=== PATIENT | male | born 1990 | race Caucasian/White ===

== ENCOUNTER 2018-02-22 18:09 | Emergency (ER) | payer OTHER | END 2018-02-22 18:26 | disposition left against medical advice (07) | LOC: ER 18:09 | DX: Z02.9 Encounter for administrative examinations, unspecified (principal) ==

== ENCOUNTER 2018-09-27 16:50 | Inpatient (IN) | payer SELFPAY ==
[2018-09-27 17:50] LABS: Absolute Neutrophil 15.6 K/uL (1.8-8.0); Basophils % 0.2 % (0-1.3); Hematocrit 43.2 % (39.6-49.0); Lymphocytes % 5.6 % (15.3-44.8); MCH 32.9 pg (27.0-35.0); MCV 95.3 fL (80-100); MPV 9.5 fL (7.6-11.3); Monocytes % 5.8 % (3.3-12.3); RBC Red Blood Cell Count 4.53 M/uL (4.33-5.43)
[2018-09-27 17:53] LABS: Protime INR 1.09
[2018-09-27 18:09] LABS: ALT/SGPT 41 U/L (12-78); AST/SGOT 49 U/L (15-37); Albumin 3.4 g/dL (3.4-5.0); Alkaline Phosphatase 51 U/L (45-117); BUN Blood Urea Nitrogen 15 mg/dL (7-18); Bicarbonate 27 mmol/L (21-32); Bilirubin Direct 0.2 mg/dL (0-0.2); Bilirubin Total 0.6 mg/dL (0.2-1.0); Glucose Level 101 mg/dL (74-106); Protein, Total 6.2 g/dL (6.4-8.2); Sodium Level 138 mmol/L (136-145)
[2018-09-27] MEDS ORDERED: LIDOCAINE VISCOUS 2% SOLN 15 ML UDC ONE (18:23)
[2018-09-27 18:46] LABS: Platelet Estimate ADEQ; Urine White Blood Cell Casts OK
[2018-09-27 18:47] LABS: Blood Morphology Comment NOT SEEN (NOT SEEN)
--- NOTE | 2018-09-27 19:05 | RAD REPORT ---
EXAM DESCRIPTION: RAD - Chest Pa And Lat (2 Views) - 09/27/2018 6:42 pm CLINICAL HISTORY: COUGH Chest pain. COMPARISON: No comparisons FINDINGS: Moderate patchy opacities are seen in the right upper lobe, likely representing pneumonia. The left lung appears grossly clear. The heart is normal in size. Old left-sided rib fractures.
--- NOTE | 2018-09-27 19:21 | RAD REPORT ---
EXAM DESCRIPTION: CT - Thorax W/ Con CLINICAL HISTORY: Chest pain cough, leukocytosis COMPARISON: No comparisons FINDINGS: Diffuse alveolar lung opacities are present involving the right lung, most compatible with pneumonia. No pleural thickening or pleural effusion. No pneumothorax. No axillary, mediastinal or hilar adenopathy. No concerning bony finding. No gross upper abdominal finding. All CT scans are performed using dose optimization technique as appropriate and may include automated exposure control or mA/KV adjustment according to patient size. IMPRESSION: Extensive alveolar right lung pneumonia.
[2018-09-27] MEDS ORDERED: VANCOMYCIN 1 GM/250 ML BAG ONE (19:28)
[2018-09-27] MEDS ORDERED: PIPER/TAZO/NS 3.375gm 3.375 GM/100 ML BAG ONE (19:28)
[2018-09-27 20:02] LABS: Barbiturates NEGATIVE (NEGATIVE); Benzodiazepines POSITIVE (NEGATIVE); Cocaine NEGATIVE (NEGATIVE); METHAMPHETAM NEGATIVE (NEGATIVE); Methadone POSITIVE (NEGATIVE); Opiates POSITIVE (NEGATIVE); Phencyclidine NEGATIVE (NEGATIVE); THC Cannibis POSITIVE (NEGATIVE)
--- NOTE | 2018-09-27 20:20 | ER ---
Nurse's Notes [facility] Name: Roberto Caal Age: 27 yrs Sex: Male : 1990 Arrival Date: 09/27/2018 Time: 16:57 Bed 24 Private MD: Diagnosis: Pneumonia, unspecified organism;Sepsis, unspecified organism Presentation: 09/27 16:57 Presenting complaint: EMS states: [facility] They stated he has taken ed1 an unknown amount of Klonipin and Lunesta and ETOH over the past 3-4 days. Transition of care: patient was not received from another setting of care. Onset of symptoms was September 24, 2018. Risk Assessment: Do you want to hurt yourself or someone else? Patient reports no desire to harm self or others. Initial Sepsis Screen: Does the patient meet any 2 criteria? No. Patient's initial sepsis screen is negative. Does the patient have a suspected source of infection? No. Patient's initial sepsis screen is negative. Care prior to arrival: Medication(s) given: Normal saline infusion, 500 mL, IV initiated. 18 GA, in the right antecubital area. 16:57 Method Of Arrival: EMS: [facility] ed1 17:23 Acuity: RYAN 2 ss Triage Assessment: 17:01 General: Appears in no apparent distress. Behavior is drowsy. Pain: Denies pain. EENT: ed1 No signs and/or symptoms were reported regarding the EENT system. Neuro: Level of Consciousness is obeys commands, lethargic, Oriented to person, place, time, situation. Cardiovascular: Denies chest pain, Heart tones S1 S2 present. Respiratory: Airway is patent Respiratory effort is even, unlabored, Respiratory pattern is regular, symmetrical, Breath sounds are clear bilaterally. GI: Patient currently denies diarrhea, nausea, vomiting. : No signs and/or symptoms were reported regarding the genitourinary system. Derm: Skin is intact, Skin is pink, warm \T\ dry. Musculoskeletal: Circulation, motion, and sensation intact. Historical: - Allergies: 17:00 No Known Allergies; ed1 - Home Meds: 17:00 Klonopin Oral [Active]; Lunesta oral oral [Active]; ed1 - PMHx: 17:00 PTSD; ed1 - PSHx: 17:00 Unable to obtain; ed1 - Immunization history:: Adult Immunizations up to date. - Social history:: Smoking status: unknown Patient uses alcohol, on a daily basis. - Ebola Screening: : Patient negative for fever greater than or equal to 101.5 degrees Fahrenheit, and additional compatible Ebola Virus Disease symptoms Patient denies exposure to infectious person Patient denies travel to an Ebola-affected area in the 21 days before illness onset No symptoms or risks identified at this time. Screenin:32 Abuse screen: Denies threats or abuse. Denies injuries from another. Nutritional ed1 screening: No deficits noted. Tuberculosis screening: No symptoms or risk factors identified. Fall Risk None identified. Assessment: 17:04 General: The previous triage assessment is accurate, call light remains within reach. . ss 17:31 Reassessment: Pt denies SI and HI at this time. No sitter needed per Ilsa Hart NP. ed1 18:00 Reassessment: Patient appears in no apparent distress at this time. Patient and/or ed1 family updated on plan of care and expected duration. Pain level reassessed. Patient is alert, oriented x 3, equal unlabored respirations, skin warm/dry/pink. Current Spo2 89% on room air. 18:59 Reassessment: Patient appears in no apparent distress at this time. Patient and/or ed1 family updated on plan of care and expected duration. Pain level reassessed. Patient is alert, oriented x 3, equal unlabored respirations, skin warm/dry/pink. Patient denies pain at this time. Patient states feeling better. Patient states symptoms have improved. 20:00 Reassessment: Patient appears in no apparent distress at this time. Patient and/or ed1 family updated on plan of care and expected duration. Pain level reassessed. Patient is alert, oriented x 3, equal unlabored respirations, skin warm/dry/pink. Respiratory: Reports shortness of breath at rest cough that is non-productive, dry, Airway is patent Respiratory effort is even, unlabored, Respiratory pattern is regular, symmetrical, Breath sounds are coarse bilaterally. 21:10 Reassessment: Patient appears in no apparent distress at this time. No changes from ed1 previously documented assessment. Patient and/or family updated on plan of care and expected duration. Pain level reassessed. Patient is alert, oriented x 3, equal unlabored respirations, skin warm/dry/pink. Vital Signs: 17:01 BP 124 / 88; Pulse 98; Resp 16; Temp 97.5(O); Pulse Ox 99% on R/A; Weight 83.91 kg; ed1 Height 5 ft. 8 in. (172.72 cm); Pain 0/10; 17:39 BP 112 / 70; Pulse 90; Resp 16; Pulse Ox 100% on R/A; tm3 18:00 Pulse Ox 89% on R/A; ed1 18:59 BP 117 / 90; Pulse 76; Resp 20; Temp 98.9(O); Pulse Ox 99% on 2 lpm NC; Pain 0/10; ed1 20:00 BP 104 / 76; Pulse 107; Resp 22; Pulse Ox 97% on 2 lpm NC; Pain 6/10; ed1 21:10 BP 102 / 60; Pulse 99; Resp 22; Temp 99.6(O); Pulse Ox 94% on 2 lpm NC; Pain 4/10; ed1 17:01 Body Mass Index 28.13 (83.91 kg, 172.72 cm) ed1 ED Course: 16:57 Patient arrived in ED. ed1 17:00 Safety checks: Items removed: yes. Door open/sign placed on door: yes. Family/friend tm3 present: no. Sitter present: Yes. 17:01 Arm band placed on right wrist. ed1 17:08 Warm blanket given. tm3 17:14 Safety checks: Items removed: yes. Door open/sign placed on door: yes. Family/friend tm3 present: no. Sitter present: Yes. 17:15 Deanne Hart FNP-C [facility]. kb 17:15 Luis Jenkins MD is Attending Physician. kb 17:22 Tammy William LVN is Primary Nurse. ed1 17:24 Triage completed. ss 17:32 Patient has correct armband on for positive identification. Placed in gown. Bed in low ed1 position. Call light in reach. Pulse ox on. NIBP on. 17:32 Maintain EMS IV. Dressing intact. Good blood return noted. Site clean \T\ dry. Gauge \T\ ed 1 site: 18g, right a/c. 17:37 Initial lab(s) drawn, by me, sent to lab. tm3 17:39 EKG done, by it support technician. reviewed by Deanne KLINE. sm3 18:[address] 2 19:06 CT completed. Patient tolerated procedure well. Patient moved back from CT. vm2 20:18 Marlon Hernandez MD is Hospitalizing Provider. kb 21:26 No provider procedures requiring assistance completed. Patient admitted, IV remains in ed1 place. intact, No redness/swelling at site. Administered Medications: 18:17 Drug: Viscous Lidocaine Liquid (4 %) 5 ml Route: Mucous Membrane; ed1 18:56 CANCELLED (Other Intervention Used): Rocephin - (cefTRIAXone) 1 grams IVPB once over 30 kb mins; (mix in 50 mL NS) 19:39 Drug: Zosyn 3.375 grams Route: IVPB; Infused Over: 60 mins; Site: right antecubital; ed1 21:17 Follow up: Response: No adverse reaction; IV Status: Completed infusion; IV Intake: ed1 100ml 21:17 Drug: vancoMYCIN 1 grams Route: IVPB; Infused Over: 2 hrs; Site: right antecubital; ed1 21:27 Follow up: IV Status: Infusion continued upon admission ed1 Intake: 21:17 IV: 100ml; Total: 100ml. ed1 Outcome: 20:18 Decision to Hospitalize by Provider. kb 21:26 Admitted to Med/surg accompanied by tech, family with patient, via wheelchair, room ed1 215, with oxygen, with chart, Report called to Swathi 21:26 Condition: stable 21:26 Discharge instructions given to patient, Instructed on the need for admit, Demonstrated understanding of instructions. 21:28 Patient left the ED. ed1 Signatures: Deanne Hart FNP-C FNP-CkJabari Babin tm3 Gabbi Nicholas, RN RN ss Tammy William, ASSISTANT NEWS DIRECTOR ASSISTANT NEWS DIRECTOR ed1 Yuliya Alexander 2 Yenny Zapata 3 Corrections: (The following items were deleted from the chart) 17:01 16:57 Risk Assessment: Do you want to hurt yourself or someone else? Patient reports ed1 desire/thoughts of hurting themselves or someone else. Provider notified. ed1
--- NOTE | 2018-09-27 20:20 | EDPHYS ---
Physician Documentation [facility] Name: Roberto Caal Age: 27 yrs Sex: Male : 1990 Arrival Date: 09/27/2018 Time: 16:57 Bed 24 Private MD: ED Physician Luis Jenkins HPI: 09/27 17:56 This 27 yrs old Male presents to ER via EMS with complaints of overdose. kb 17:56 The patient presents to the emergency department after a known overdose. Context: kb Method: the patient has a confirmed or suspected ingestion, lunesta and klonopin, Time: over the last 2-3 days, Extent: it is unknown what amount the patient ingested, the OD/poisoning occurred at at home, and was witnessed by a significant other, Psychiatric history: the patient has a known psychiatric disorder, PTSD, Previous OD/poisoning history: none. Associated signs and symptoms: Pertinent positives: drowsy, Pertinent negatives: anxiety, apnea, auditory hallucinations, burning of skin, decreased level of consciousness, depression, diaphoresis, diarrhea, dizziness, incontinence, loss of consciousness, nausea, palpitations, shortness of breath, tearfulness, visual hallucinations, vomiting. Severity of symptoms: At their worst the symptoms were moderate in the emergency department the symptoms are unchanged. The patient has experienced similar episodes in the past. The patient has been recently seen by a physician: the patient's primary care provider, with similar presenting complaints, and was sent to the [facility] Emergency Department for further evaluation. 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 They have been bad over the last few days so he hasn't been able to sleep. He reports he took a lot of his prescribed klonopin over the last few days trying to get some sleep. [facility] so that he could sleep without night terrors and they sent him here. Denies suicidal and homicidal ideations. States he was not trying to harm himself in any way. "I want to be successful. I used to see a therapist and she helped me a lot, but then she quit. I need to find a new one.". Historical: - Allergies: 17:00 No Known Allergies; ed1 - Home Meds: 17:00 Klonopin Oral [Active]; Lunesta oral oral [Active]; ed1 - PMHx: 17:00 PTSD; ed1 - PSHx: 17:00 Unable to obtain; ed1 - Immunization history:: Adult Immunizations up to date. - Social history:: Smoking status: unknown Patient uses alcohol, on a daily basis. - Ebola Screening: : Patient negative for fever greater than or equal to 101.5 degrees Fahrenheit, and additional compatible Ebola Virus Disease symptoms Patient denies exposure to infectious person Patient denies travel to an Ebola-affected area in the 21 days before illness onset No symptoms or risks identified at this time. ROS: 17:55 Constitutional: Negative for fever, chills, and weight loss, ENT: Negative for injury, kb pain, and discharge, Neck: Negative for injury, pain, and swelling, Cardiovascular: Negative for chest pain, palpitations, and edema, Respiratory: Negative for shortness of breath, cough, wheezing, and pleuritic chest pain, Abdomen/GI: Negative for abdominal pain, nausea, vomiting, diarrhea, and constipation, Back: Negative for injury and pain, : Negative for injury, bleeding, discharge, and swelling, MS/Extremity: Negative for injury and deformity, Skin: Negative for injury, rash, and discoloration, Neuro: Negative for headache, weakness, numbness, tingling, and seizure, Psych: Negative for depression, anxiety, suicide ideation, homicidal ideation, and hallucinations. Exam: 17:55 Constitutional: This is a well developed, well nourished patient who is awake, alert, kb and in no acute distress. Head/Face: Normocephalic, atraumatic. Eyes: Pupils equal round and reactive to light, extra-ocular motions intact. Lids and lashes normal. Conjunctiva and sclera are non-icteric and not injected. Cornea within normal limits. Periorbital areas with no swelling, redness, or edema. ENT: Nares patent. No nasal discharge, no septal abnormalities noted. Tympanic membranes are normal and external auditory canals are clear. Oropharynx with redness, no swelling, or masses, exudates, or evidence of obstruction, uvula midline. Mucous membranes moist. Neck: Trachea midline, no thyromegaly or masses palpated, and no cervical lymphadenopathy. Supple, full range of motion without nuchal rigidity, or vertebral point tenderness. No Meningismus. Chest/axilla: Normal chest wall appearance and motion. Nontender with no deformity. No lesions are appreciated. Cardiovascular: Regular rate and rhythm with a normal S1 and S2. No gallops, murmurs, or rubs. Normal PMI, no JVD. No pulse deficits. Respiratory: Lungs have equal breath sounds bilaterally, clear to auscultation and percussion. No rales, rhonchi or wheezes noted. No increased work of breathing, no retractions or nasal flaring. Abdomen/GI: Soft, non-tender, with normal bowel sounds. No distension or tympany. No guarding or rebound. No evidence of tenderness throughout. Back: No spinal tenderness. No costovertebral tenderness. Full range of motion. Skin: Warm, dry with normal turgor. Normal color with no rashes, no lesions, and no evidence of cellulitis. MS/ Extremity: Pulses equal, no cyanosis. Neurovascular intact. Full, normal range of motion. Neuro: Awake and alert, GCS 15, oriented to person, place, time, and situation. Cranial nerves II-XII grossly intact. Motor strength 5/5 in all extremities. Sensory grossly intact. Cerebellar exam normal. Normal gait. Psych: Awake, alert, with orientation to person, place and time. Behavior, mood, and affect are within normal limits. Vital Signs: 17:01 BP 124 / 88; Pulse 98; Resp 16; Temp 97.5(O); Pulse Ox 99% on R/A; Weight 83.91 kg; ed1 Height 5 ft. 8 in. (172.72 cm); Pain 0/10; 17:39 BP 112 / 70; Pulse 90; Resp 16; Pulse Ox 100% on R/A; tm3 18:00 Pulse Ox 89% on R/A; ed1 18:59 BP 117 / 90; Pulse 76; Resp 20; Temp 98.9(O); Pulse Ox 99% on 2 lpm NC; Pain 0/10; ed1 20:00 BP 104 / 76; Pulse 107; Resp 22; Pulse Ox 97% on 2 lpm NC; Pain 6/10; ed1 21:10 BP 102 / 60; Pulse 99; Resp 22; Temp 99.6(O); Pulse Ox 94% on 2 lpm NC; Pain 4/10; ed1 17:01 Body Mass Index 28.13 (83.91 kg, 172.72 cm) ed1 MDM: 17:15 Patient medically screened. kb 17:55 Data reviewed: vital signs, nurses notes. Data interpreted: Pulse oximetry: on room air kb is 100 %. Interpretation: normal. 19:11 Counseling: I had a detailed discussion with the patient and/or guardian regarding: the kb historical points, exam findings, and any diagnostic results supporting the discharge/admit diagnosis, lab results, radiology results, the need for further work-up and treatment in the hospital. 19:31 Physician consultation: Faheem Garcia MD was called at 19:31. kb 20:18 Physician consultation: Marlon Hernandez MD was contacted at 20:18, regarding admission, kb to the telemetry unit. patient's condition, and will see patient in ED, shortly. 09/27 17:15 Order name: Acetaminophen 09/27 17:15 Order name: Basic Metabolic Panel 09/27 17:15 Order name: CBC with Diff 09/27 17:15 Order name: ETOH Level 09/27 17:15 Order name: Hepatic Function 09/27 17:15 Order name: PT-INR 09/27 17:15 Order name: Ptt, Activated 09/27 17:15 Order name: Salicylate 09/27 17:15 Order name: Urine Drug Screen 09/27 17:53 Order name: CBC with Automated Diff; Complete Time: 18:48 EDMS 09/27 18:02 Order name: Alcohol Serum/Plasma; Complete Time: 18:02 EDMS 09/27 18:07 Order name: Protime (+INR); Complete Time: 18:09 EDMS 09/27 18:07 Order name: PTT, Activated Partial Thromb; Complete Time: 18:09 EDMS 09/27 18:09 Order name: Basic Metabolic Panel; Complete Time: 18:12 EDMS 09/27 18:09 Order name: Liver (Hepatic) Function; Complete Time: 18:12 EDMS 09/27 18:10 Order name: Strep 09/27 18:10 Order name: Chest Pa And Lat (2 Views) XRAY 09/27 18:12 Order name: Acetaminophen Level; Complete Time: 18:12 EDMS 09/27 18:17 Order name: Salicylates Level; Complete Time: 18:17 EDMS 09/27 18:46 Order name: CT Chest W/ Con 09/27 18:47 Order name: CBC Smear Scan; Complete Time: 18:48 EDMS 09/27 18:47 Order name: Blood Culture Adult (2) 09/27 18:47 Order name: Procalcitonin 09/27 18:49 Order name: Group A Streptococcus Rapid Sc; Complete Time: 18:50 EDMS 09/27 19:07 Order name: RAD; Complete Time: 19:07 EDMS 09/27 19:22 Order name: Procalcitonin; Complete Time: 19:24 EDMS 09/27 19:22 Order name: CT; Complete Time: 19:24 EDMS 09/27 19:35 Order name: Urine Dipstick--Ancillary (enter results) [facility] 09/27 20:02 Order name: Urine Drug Screen; Complete Time: 20:08 EDMS 09/27 17:15 Order name: EKG; Complete Time: 17:16 kb 09/27 17:15 Order name: EKG - Nurse/Tech; Complete Time: 17:50 kb 09/27 17:15 Order name: IV Saline Lock; Complete Time: 17:50 kb 09/27 17:15 Order name: Labs collected and sent; Complete Time: 17:50 kb 09/27 17:15 Order name: Urine Dipstick-Ancillary (obtain specimen); Complete Time: 19:18 kb Administered Medications: 18:17 Drug: Viscous Lidocaine Liquid (4 %) 5 ml Route: Mucous Membrane; ed1 18:56 CANCELLED (Other Intervention Used): Rocephin - (cefTRIAXone) 1 grams IVPB once over 30 kb mins; (mix in 50 mL NS) 19:39 Drug: Zosyn 3.375 grams Route: IVPB; Infused Over: 60 mins; Site: right antecubital; ed1 21:17 Follow up: Response: No adverse reaction; IV Status: Completed infusion; IV Intake: ed1 100ml 21:17 Drug: vancoMYCIN 1 grams Route: IVPB; Infused Over: 2 hrs; Site: right antecubital; ed1 21:27 Follow up: IV Status: Infusion continued upon admission ed1 Disposition: 09/27/18 20:18 Hospitalization ordered by Marlon Hernandez for Inpatient Admission. Preliminary diagnosis are Pneumonia, unspecified organism, Sepsis, unspecified organism. - Bed requested for Telemetry/MedSurg (Inpatient). - Status is Inpatient Admission. ed1 - Condition is Stable. - Problem is new. - Symptoms are unchanged. UTI on Admission? No Addendum: 09/29/2018 09:19 Co-signature as Attending Physician, Luis Jenkins MD I agree with the assessment and k dr plan of care. Signatures: Dispatcher [employer] EDMS Deanne Hart FNP-C FNP-Sabra Bolaños RN RN kl Rittger, Kevin, MD MD [facility] Tammy William, [employer]S REPAIRER OPERATOR ed1 Corrections: (The following items were deleted from the chart) 09/27 18:37 17:55 Constitutional: This is a well developed, well nourished patient who is awake, kb alert, and in no acute distress. Head/Face: Normocephalic, atraumatic. Eyes: Pupils equal round and reactive to light, extra-ocular motions intact. Lids and lashes normal. Conjunctiva and sclera are non-icteric and not injected. Cornea within normal limits. Periorbital areas with no swelling, redness, or edema. ENT: Nares patent. No nasal discharge, no septal abnormalities noted. Tympanic membranes are normal and external auditory canals are clear. Oropharynx with no redness, swelling, or masses, exudates, or evidence of obstruction, uvula midline. Mucous membranes moist. Neck: Trachea midline, no thyromegaly or masses palpated, and no cervical lymphadenopathy. Supple, full range of motion without nuchal rigidity, or vertebral point tenderness. No Meningismus. Chest/axilla: Normal chest wall appearance and motion. Nontender with no deformity. No lesions are appreciated. Cardiovascular: Regular rate and rhythm with a normal S1 and S2. No gallops, murmurs, or rubs. Normal PMI, no JVD. No pulse deficits. Respiratory: Lungs have equal breath sounds bilaterally, clear to auscultation and percussion. No rales, rhonchi or wheezes noted. No increased work of breathing, no retractions or nasal flaring. Abdomen/GI: Soft, non-tender, with normal bowel sounds. No distension or tympany. No guarding or rebound. No evidence of tenderness throughout. Back: No spinal tenderness. No costovertebral tenderness. Full range of motion. Skin: Warm, dry with normal turgor. Normal color with no rashes, no lesions, and no evidence of cellulitis. MS/ Extremity: Pulses equal, no cyanosis. Neurovascular intact. Full, normal range of motion. Neuro: Awake and alert, GCS 15, oriented to person, place, time, and situation. Cranial nerves II-XII grossly intact. Motor strength 5/5 in all extremities. Sensory grossly intact. Cerebellar exam normal. Normal gait. Psych: Awake, alert, with orientation to person, place and time. Behavior, mood, and affect are within normal limits. kb 18:56 18:48 Rocephin - (cefTRIAXone) 1 grams IVPB once over 30 mins; (mix in 50 mL NS) kb ordered. kb 20:55 20:18 Hospitalization Ordered by Marlon Hernandez MD for Inpatient Admission. Preliminary kl diagnosis is Pneumonia, unspecified organism; Sepsis, unspecified organism. Bed requested for Telemetry/MedSurg (Inpatient). Status is Inpatient Admission. Condition is Stable. Problem is new. Symptoms are unchanged. UTI on Admission? No. kb 21:28 20:55 09/27/2018 20:18 Hospitalization Ordered by Marlon Hernandez MD for Inpatient ed1 Admission. Preliminary diagnosis is Pneumonia, unspecified organism; Sepsis, unspecified organism. Bed requested for Telemetry/MedSurg (Inpatient). Status is Inpatient Admission. Condition is Stable. Problem is new. Symptoms are unchanged. UTI on Admission? No. kl
[2018-09-27] MEDS ORDERED: ONDANSETRON 4 MG/2 ML VIAL IV PRN (20:40)
[2018-09-27] MEDS ORDERED: MAGNESIUM HYDROXIDE 8% 30 ML PO PRN (20:40)
[2018-09-27] MEDS ORDERED: ALBUTEROL 2.5 MG/3 ML NEB SOL NEB SCH (21:00)
[2018-09-27] MEDS: NA CHLORIDE 0.9% 1,000 ML IV SCH (22:03)
[2018-09-27 22:28] LABS: Urine Blood NEGATIVE (NEG); Urine Glucose NEGATIVE (NEG); Urine Protein NEGATIVE (NEG); Urine pH 5.5 (5.0-7.0)
[2018-09-27] MEDS: ACETAMINOPHEN 500 MG TAB PO PRN (23:09)
[2018-09-28] MEDS: ESZOPICLONE 1 MG TAB PO PRN ×2 (00:05→20:22)
[2018-09-28] MEDS: IPRATROPIUM BROM 0.5MG/2.5ML NEB SCH ×2 (00:30→07:30)
[2018-09-28] MEDS ORDERED: PIPER/TAZO/NS 3.375gm 3.375 GM/100 ML BAG ONE (03:07)
[2018-09-28] MEDS ORDERED: PIPER/TAZO/NS 3.375gm 3.375 GM/100 ML BAG IVPB SCH ×2 (04:00→09:30)
[2018-09-28 05:04] LABS: Absolute Lymphocytes (CBC) 2.2 K/uL (0.7-4.9); Absolute Monocytes 0.8 K/uL (0.1-1.3); Absolute Neutrophil 13.2 K/uL (1.8-8.0); Basophils % 0.4 % (0-1.3); Eosinophils % 0.7 % (0-4.4); Hematocrit 39.8 % (39.6-49.0); Lymphocytes % 13.5 % (15.3-44.8); MCH 32.7 pg (27.0-35.0); MCV 96.4 fL (80-100); MPV 9.8 fL (7.6-11.3); Monocytes % 4.7 % (3.3-12.3); RBC Red Blood Cell Count 4.13 M/uL (4.33-5.43)
[2018-09-28 05:11] LABS: ALT/SGPT 42 U/L (12-78); AST/SGOT 49 U/L (15-37); Albumin 2.8 g/dL (3.4-5.0); Alkaline Phosphatase 48 U/L (45-117); BUN Blood Urea Nitrogen 11 mg/dL (7-18); Bicarbonate 28 mmol/L (21-32); Bilirubin Total 0.6 mg/dL (0.2-1.0); Glucose Level 93 mg/dL (74-106); HDL Cholesterol 75 mg/dL (40-60); LDL Cholesterol, Calculated 28 (<130); Magnesium 1.8 mg/dL (1.8-2.4); Phosphorus 2.5 mg/dL (2.5-4.9); Potassium 3.7 mmol/L (3.5-5.1); Protein, Total 5.5 g/dL (6.4-8.2); Sodium Level 140 mmol/L (136-145)
[2018-09-28] MEDS ORDERED: MAGNESIUM SULFATE 1 gm IVPB 1 GM/100 ML BAG IV ONE (05:43)
[2018-09-28] MEDS ORDERED: POTASSIUM PHOS IN 0.9 % NACL 15 MMOL/250 ML BAG IV ONE (05:45)
--- NOTE | 2018-09-28 07:54 | P.HP ---
Certification for Inpatient Patient admitted to: Inpatient With expected LOS: >2 Midnights Practitioner: I am a practitioner with admitting privileges, knowledge of patient current condition, hospital course, and medical plan of care. Services: Services provided to patient in accordance with Admission requirements found in Title 42 Section 412.3 of the Code of Federal Regulations Patient History Date of Service: 09/27/18 Reason for admission: Multifocal pneumonia History of Present Illness: Patient is a 27-year-old gentleman who had come into the hospital after being unresponsive. Patient had taken polysubstances. He had narcotics, benzos, and amphetamines. Patient's was trying to wake him up, but she was unsuccessful. She went ahead and called EMS. EMS brought patient into the hospital. In the emergency room, patient had a CT scan which revealed diffuse bilateral pneumonia concentrated in the right lower lobe. Patient will be admitted to the hospital for further evaluation, along with treatment with IV antibiotics. Continue with nebulizer therapy and O2 per protocol. Allergies No Known Allergies Allergy (Verified 09/27/18 22:06) Home Medications: Eszopiclone [Lunesta*] 3 mg OP BEDTIME 09/27/18 - Past Medical/Surgical History Has patient received pneumonia vaccine in the past: No Diabetic: No -: Posttraumatic stress disorder Past Surgical History: Patient denies surgical history - Family History Mother Medical History: Cancer - Social History Smoking Status: Former smoker Alcohol use: Yes CD- Drugs: Yes Caffeine use: No Place of Residence: Home Review of Systems 10-point ROS is otherwise unremarkable Physical Examination - Vital Signs Temperature: 97.8 F Blood Pressure: 103/55 Pulse: 70 Respirations: 18 Pulse Ox (%): 92 - Physical Exam General: Alert, In no apparent distress, Oriented x3 HEENT: Atraumatic, PERRLA, Mucous membr. moist/pink, EOMI, Sclerae nonicteric Neck: Supple, 2+ carotid pulse no bruit, No LAD, Without JVD or thyroid abnormality Respiratory: Diminished, Rhonchi/gurgles Cardiovascular: Regular rate/rhythm, Normal S1 S2, No murmurs Gastrointestinal: Normal bowel sounds, Soft and benign, Non-distended, No tenderness Musculoskeletal: No clubbing, No swelling, No tenderness Integumentary: No rashes Neurological: Normal gait, Normal speech, Normal strength at 5/5 x4 extr, Normal tone, Sensation intact, Cranial nerves 3-12 intact, Normal affect Lymphatics: No axilla or inguinal lymphadenopathy - Studies Laboratory Data (last 24 hrs) 09/27/18 17:30: PT 12.9 H, INR 1.09, APTT 28.1 09/27/18 17:30: WBC 17.7 H, Hgb 14.9, Hct 43.2, Plt Count 218 09/27/18 17:30: Sodium 138, Potassium 4.0, BUN 15, Creatinine 0.90, Glucose 101 , Total Bilirubin 0.6, AST 49 H, ALT 41, Alkaline Phosphatase 51 Microbiology Data (last 24 hrs): 09/27/18 18:17 Throat Group A Streptococcus Rapid Screen - Final Assessment & Plan - Problems (Diagnosis) (1) Aspiration pneumonia Current Visit: Yes Status: Acute (2) Polysubstance dependence including opioid type drug, episodic abuse Current Visit: Yes Status: Acute - Plan 1. Continue with IV antibiotics 2. Awaiting sputum and blood culture 3. Repeat chest x-ray 4. Continue with nebs as needed 5. O2 per protocol 6. Continue with gentle hydration 7. Lawn Technician regarding drug abuse 8. GI and DVT prophylaxis Discharge Plan: Home Plan to discharge in: Greater than 2 days - Advance Directives Does patient have a Living Will: No Does patient have a Durable POA for Healthcare: No - Code Status/Comfort Care Code Status Assessed: Yes Code Status: Full Code Critical Care: No Time Spent Managing PTS Care (In Minutes): 50
--- NOTE | 2018-09-28 08:29 | EKG ---
Test Date: 2018-09-27 Test Time: 17:37:44 Frame Straightener: DANIEL MEASUREMENT RESULTS: Intervals: Rate: 96 AR: 138 QRSD: 92 QT: 356 QTc: 449 [place]: P: 67 AR: 138 QRS: 92 T: 60 INTERPRETIVE STATEMENTS: Normal sinus rhythm Right atrial enlargement Rightward axis Borderline ECG No previous ECG available for comparison Electronically Signed On 09-28-18 08:28:31 DRYWALL STRIPPER by Gallo Bernard
[2018-09-28] MEDS: ENOXAPARIN 40 MG/0.4 ML SQ SCH (08:39)
[2018-09-28] MEDS ORDERED: levoFLOXacin 500 MG TAB PO SCH (09:00)
[2018-09-28] MEDS: NA CHLORIDE 0.9% 1,000 ML IV SCH (10:13)
--- NOTE | 2018-09-28 10:43 | P.CNS ---
Date of Consult: 09/28/18 Chief Complaint: Multifocal pneumonia History of Present Illness: PATIENT IS 27 YEARS OF AGE APPARENTLY WAS FOUND UNRESPONSIVE IS BEEN COMPLAINING OF SO THROAT CHEST CONGESTION. Admitted with pneumonia extensive on the right side still feels very congested still complaining of a so throat history of polysubstance abuse PTSD Allergies No Known Allergies Allergy (Verified 09/27/18 22:06) Home Medications: Eszopiclone [Lunesta*] 3 mg OP BEDTIME 09/27/18 - Past Medical/Surgical History Diabetic: No -: Posttraumatic stress disorder - Family History Mother Medical History: Cancer - Social History Smoking Status: Unknown if ever smoked Alcohol use: Yes CD- Drugs: Yes Caffeine use: No Place of Residence: Home Review of Systems General: Weakness ENT: Other (So throat) Respiratory: Cough, Shortness of Breath Physical Examination Temp Pulse Resp BP Pulse Ox 97.8 F 70 18 103/55 L 92 09/28/18 08:32 09/28/18 08:32 09/28/18 08:32 09/28/18 08:32 09/28/18 08:32 General: Alert, Oriented x3, Moderate distress HEENT: Atraumatic Neck: Supple Respiratory: Crackles/rales (Extensive crackles and rhonchi on the right side) Cardiovascular: No edema, Regular rate/rhythm, Normal S1 S2 Gastrointestinal: Normal bowel sounds, Soft and benign Laboratory Data (last 24 hrs) 09/27/18 17:30: PT 12.9 H, INR 1.09, APTT 28.1 09/27/18 17:30: WBC 17.7 H, Hgb 14.9, Hct 43.2, Plt Count 218 09/27/18 17:30: Sodium 138, Potassium 4.0, BUN 15, Creatinine 0.90, Glucose 101 , Total Bilirubin 0.6, AST 49 H, ALT 41, Alkaline Phosphatase 51 - Problems (1) Pneumonia Current Visit: Yes Status: Acute Plan: Patient is 27 years of age history of polysubstance abuse admitted with chest congestion so throat his extensive infiltrate on the right continue with the Zosyn I have added levofloxacin most likely streptococcal pneumonia aspiration is also possibility was found unresponsive white count is elevated urinalysis is positive for multisubstance abuse he has some throat lozenges vital signs stable continue with monitoring possible discharge tomorrow on levofloxacin sputum cultures have been ordered
[2018-09-28] MEDS: MAGIC MOUTHWASH 180 ML BTL PO PRN ×2 (10:55→20:21)
[2018-09-28] MEDS: Levofloxacin500mg IV 500 MG/100 ML BAG IV SCH (12:10)
[2018-09-28] MEDS: CEPACOL LOZENGES PO PRN ×2 (12:11→20:22)
--- NOTE | 2018-09-28 13:10 | P.PN ---
Subjective Date of Service: 09/28/18 Primary Care Provider: None Chief Complaint: Multifocal pneumonia Subjective: Other (Patient feels better. Still reports sore throat.) Physical Examination - Vital Signs Temperature: 97.8 F Blood Pressure: 103/55 Pulse: 70 Respirations: 18 Pulse Ox (%): 92 - Physical Exam General: Alert, In no apparent distress, Oriented x3, Cooperative HEENT: Atraumatic Neck: Supple Respiratory: Crackles/rales (To the right side but good air movement) Cardiovascular: Normal pulses, Regular rate/rhythm Gastrointestinal: Normal bowel sounds, Soft and benign, Non-distended, No tenderness, No masses, No rebound, No guarding Musculoskeletal: No erythema, No tenderness, No warmth Integumentary: No tenderness/swelling, No erythema, No warmth, No cyanosis Neurological: Normal speech, Normal strength at 5/5 x4 extr, Normal tone, Normal affect - Studies Laboratory Data (last 24 hrs) 09/27/18 17:30: PT 12.9 H, INR 1.09, APTT 28.1 09/27/18 17:30: WBC 17.7 H, Hgb 14.9, Hct 43.2, Plt Count 218 09/27/18 17:30: Sodium 138, Potassium 4.0, BUN 15, Creatinine 0.90, Glucose 101 , Total Bilirubin 0.6, AST 49 H, ALT 41, Alkaline Phosphatase 51 Microbiology Data (last 24 hrs): 09/27/18 18:17 Throat Group A Streptococcus Rapid Screen - Final Medications List Reviewed: Yes Assessment & Plan Discharge Plan: Home Plan to discharge in: 24 Hours Physician Review Additional Text: Impression: Toxic encephalopathy secondary to extensive alveolar right lung pneumonia likely aspiration/streptococcal infection complicated with polysubstance abuse- opiates, methadone, benzodiazepines, and THC Posttraumatic stress disorder History of polysubstance abuse Alcohol abuse Insomnia Plan: Toxic encephalopathy secondary to extensive alveolar right lung pneumonia likely aspiration/streptococcal infection complicated with polysubstance abuse- opiates, methadone, benzodiazepines, and THC: Continue current IV antibiotic therapy-Zosyn and Levaquin. Will provide medication for shortness of breath. Case discussed with pulmonology. Possible discharge tomorrow if significantly improved. Patient no longer hypoxic. Will recheck chest x-ray in the morning. Encourage cessation of polysubstance abuse. Will provide DVT prophylaxis. Posttraumatic stress disorder: Will check to see the patient has been taking medication for this. Patient should see psychiatry and counseling as an outpatient. History of polysubstance abuse: Cessation of illegal drugs addressed in detail. Patient understands. Alcohol abuse: Cessation addressed in detail. Will monitor for withdrawal. Insomnia: Will continue with his medication. Time Spent Managing Pts Care (In Minutes): 55
[2018-09-28] MEDS ORDERED: BENZONATATE 100 MG CAP PO PRN (13:11)
[2018-09-28] MEDS ORDERED: ALBUTEROL 2.5 MG/3 ML NEB SOL NEB PRN (13:12)
[2018-09-28] MEDS ORDERED: IPRATROPIUM BROM 0.5MG/2.5ML NEB PRN (13:13)
[2018-09-28] MEDS: PIPER/TAZO/NS 3.375gm 3.375 GM/100 ML BAG IVPB SCH (17:10)
[2018-09-28] MEDS: NYSTATIN 500,000 UNIT/5 ML UDC PO SCH ×2 (17:11→20:24)
[2018-09-28] MEDS: ACETAMINOPHEN 500 MG TAB PO PRN (20:21)
[2018-09-28] MEDS: GUAIFENESIN 600 MG SA TAB PO SCH (20:21)
[2018-09-28 21:33] LABS: Urine Appearance CLEAR; Urine Bilirubin NEGATIVE (NEG); Urine Blood NEGATIVE (NEG); Urine Color YELLOW; Urine Glucose NEGATIVE (NEG); Urine Protein NEGATIVE (NEG); Urine pH 7.5 (5.0-7.0)
[2018-09-28 21:43] LABS: Urine Microscopic Reflex NO UMIC
[2018-09-29] MEDS ORDERED: PIPER/TAZO/NS 3.375gm 3.375 GM/100 ML BAG ONE ×2 (00:22→05:26)
[2018-09-29] MEDS: PIPER/TAZO/NS 3.375gm 3.375 GM/100 ML BAG IVPB SCH ×3 (00:48→11:40)
[2018-09-29] MEDS: CEPACOL LOZENGES PO PRN ×2 (05:49→11:41)
[2018-09-29 06:02] LABS: BUN Blood Urea Nitrogen 5 mg/dL (7-18); Bicarbonate 25 mmol/L (21-32); Glucose Level 88 mg/dL (74-106); Phosphorus 2.1 mg/dL (2.5-4.9); Potassium 3.6 mmol/L (3.5-5.1); Sodium Level 138 mmol/L (136-145)
[2018-09-29] MEDS ORDERED: POTASSIUM PHOS IN 0.9 % NACL 15 MMOL/250 ML BAG IV ONE (06:10)
[2018-09-29] MEDS: ENOXAPARIN 40 MG/0.4 ML SQ SCH (09:59)
[2018-09-29] MEDS: MAGIC MOUTHWASH 180 ML BTL PO PRN (09:59)
[2018-09-29] MEDS: NYSTATIN 500,000 UNIT/5 ML UDC PO SCH ×2 (09:59→12:31)
[2018-09-29] MEDS: GUAIFENESIN 600 MG SA TAB PO SCH (10:00)
--- NOTE | 2018-09-29 10:21 | RAD REPORT ---
EXAM DESCRIPTION: RAD - Chest Pa And Lat (2 Views) - 09/29/2018 9:46 am CLINICAL HISTORY: Pneumonia COMPARISON: CT chest September 27, two view chest September 27 TECHNIQUE: PA and lateral views of the chest were obtained. FINDINGS: The lungs are slightly underinflated. The patient's right-side pneumonia pattern has subst antially improved from prior imaging. No new or progressive left lung field finding. Old rib trauma n oted on the left. Heart size is normal and central vasculature is within normal limits. No pleural effusion or pneumothorax seen. No acute bony finding noted. No aortic abnormality. IMPRESSION: Significant improvement in the right lung field pneumonia since September 27. No new or progressive finding.
[2018-09-29] MEDS: Levofloxacin500mg IV 500 MG/100 ML BAG IV SCH (11:35)
--- NOTE | 2018-09-29 11:58 | P.DS ---
Admission Date: 09/27/18 Discharge Date: 09/29/18 Primary Care Provider: [facility] Disposition: ROUTINE DISCHARGE Discharge Condition: GOOD Reason for Admission: Multifocal pneumonia Consultations: Pulmonary-Dr. Kwong Procedures: CT scan: COMPARISON: No comparisons FINDINGS: Diffuse alveolar lung opacities are present involving the right lung , most compatible with pneumonia. No pleural thickening or pleural effusion. No pneumothorax. No axillary, mediastinal or hilar adenopathy. No concerning bony finding. No gross upper abdominal finding. All CT scans are performed using dose optimization technique as appropriate and may include automated exposure control or mA/KV adjustment according to patient size. IMPRESSION: Extensive alveolar right lung pneumonia. Follow up CXR: COMPARISON: CT chest September 27, two view chest September 27 TECHNIQUE: PA and lateral views of the chest were obtained. FINDINGS: The lungs are slightly underinflated. The patient's right-side pneumonia pattern has substantially improved from prior imaging. No new or progressive left lung field finding. Old rib trauma noted on the left. Heart size is normal and central vasculature is within normal limits. No pleural effusion or pneumothorax seen. No acute bony finding noted. No aortic abnormality. IMPRESSION: Significant improvement in the right lung field pneumonia since September 27. No new or progressive finding. Medical Problem List: Toxic encephalopathy secondary to extensive alveolar right lung pneumonia likely aspiration infection complicated with polysubstance abuse-opiates, methadone, benzodiazepines, and THC Sore throat suspect thrush Posttraumatic stress disorder History of polysubstance abuse Alcohol abuse Insomnia Brief History of Present Illness: 27-year-old male presented to the emergency room after he was seen at the [facility]. His had seen him on the floor after the patient took multiple substances. Patient was in an altered state due to medication. Patient with history of polysubstance abuse. There was some question of aspiration. The patient was evaluated in the emergency room. Patient denied suicide attempt. He reports a history of posttraumatic stress disorder. He had a bad week. CT scan revealed right pneumonia. Patient admitted for treatment. Hospital Course: Patient presented with toxic encephalopathy secondary to extensive alveolar right lung pneumonia likely aspiration. Patient with history of polysubstance abuse. Patient positive for opiates, methadone, benzodiazepine and THC. Patient not suicidal. Patient apparently had a difficult weak. Patient with history of posttraumatic to order. Patient initially seen at the [facility] and sent to the hospital for evaluation. Patient was treated during his stay. Patient received IV antibiotic therapy with improvement. Repeat chest x-ray shows improvement. Patient without any significant shortness of breath. At discharge he will continue with Levaquin 500 mg daily for 7 days. Patient will continue with Tessalon Perles 100 mg 3 times a day as needed for cough and Mucinex 600 mg twice daily as needed for congestion. Recommendation to recheck chest x-ray in 2-4 weeks to monitor resolution. Patient will follow up with his PCP within 1 week to follow up this hospitalization. Patient with sore throat. Likely thrush. Patient will be given nystatin swish and swallow 4 times a day and Magic mouthwash to be use as needed. Patient with polysubstance abuse. Patient positive for opiates, methadone, benzodiazepine and THC. Patient not suicidal at this time. Patient admits taking multiple medication due to a difficult time. Patient with history of posttraumatic stress disorder. Patient is seen at the [facility]. Recommendation is for the patient follow up at the [facility] this week to further address. Patient should see psychiatry. Patient should receive counseling and possibly medication to further address. This can be done with the help of his PCP. Patient with alcohol abuse. Alcohol cessation addressed in detail. This will need to be enforced. Patient may benefit with alcoholics anonymous counseling. Patient with insomnia. Patient may continue with his medication Lunesta. Patient may have underlying GERD. Patient will continue with Protonix 40 mg daily. This can be further addressed as an outpatient by GI. Patient may return to work in 1 week or be seen by his PCP within the next 2 days to get cleared to go back to work. Vital Signs/Physical Exam: Temp Pulse Resp BP Pulse Ox 96.9 F 49 L 18 158/88 H 98 09/29/18 08:00 09/29/18 08:00 09/29/18 08:00 09/29/18 08:00 09/29/18 08:00 General: Alert, In no apparent distress, Oriented x3, Cooperative HEENT: Atraumatic Neck: Supple Respiratory: Clear to auscultation bilaterally, Normal air movement Cardiovascular: Normal pulses, Regular rate/rhythm Gastrointestinal: Normal bowel sounds, Soft and benign, Non-distended, No tenderness, No masses, No rebound, No guarding Musculoskeletal: No contractures, No erythema, No tenderness, No warmth Integumentary: No tenderness/swelling, No erythema, No warmth, No cyanosis Neurological: Normal speech, Normal strength at 5/5 x4 extr, Normal tone, Normal affect Laboratory Data at Discharge: WBC 16.4 K/uL (4.3-10.9) H 09/28/18 04:33 Hgb 13.5 g/dL (13.6-17.9) L 09/28/18 04:33 Hct 39.8 % (39.6-49.0) 09/28/18 04:33 Plt Count 189 K/uL (152-406) 09/28/18 04:33 PT 12.9 SECONDS (9.5-12.5) H 09/27/18 17:30 INR 1.09 09/27/18 17:30 APTT 28.1 SECONDS (24.3-36.9) 09/27/18 17:30 Sodium 138 mmol/L (136-145) 09/29/18 04:56 Potassium 3.6 mmol/L (3.5-5.1) 09/29/18 04:56 BUN 5 mg/dL (7-18) L 09/29/18 04:56 Creatinine 0.70 mg/dL (0.55-1.3) 09/29/18 04:56 Glucose 88 mg/dL (74-106) 09/29/18 04:56 Phosphorus 2.1 mg/dL (2.5-4.9) L 09/29/18 04:56 Magnesium 2.0 mg/dL (1.8-2.4) 09/29/18 04:56 Total Bilirubin 0.6 mg/dL (0.2-1.0) 09/28/18 04:33 AST 49 U/L (15-37) H 09/28/18 04:33 ALT 42 U/L (12-78) 09/28/18 04:33 Alkaline Phosphatase 48 U/L (45-117) 09/28/18 04:33 Triglycerides 16 mg/dL (<150) 09/28/18 04:33 Cholesterol 106 mg/dL (<200) 09/28/18 04:33 HDL Cholesterol 75 mg/dL (40-60) H 09/28/18 04:33 Cholesterol/HDL Ratio 1.41 09/28/18 04:33 Home Medications: Eszopiclone [Lunesta*] 3 mg OP BEDTIME 09/27/18 Benzonatate [Tessalon Perle*] 100 mg PO TID PRN #20 cap 09/29/18 Guaifenesin [Mucinex] 600 mg PO BID #20 tablet.er 09/29/18 Levofloxacin [Levaquin] 500 mg PO DAILY #7 tablet 09/29/18 Magic Mouthwash [Magic Mouthwash*] 15 ml PO QID PRN #1 btl 09/29/18 Nystatin 5 ml PO QID #1 bottle 09/29/18 Pantoprazole [Protonix Tab] 40 mg PO DAILY #30 tab 09/29/18 New Medications: Benzonatate [Tessalon Perle*] 100 mg PO TID PRN #20 cap PRN Reason: Cough Guaifenesin [Mucinex] 600 mg PO BID #20 tablet.er Levofloxacin [Levaquin] 500 mg PO DAILY #7 tablet Magic Mouthwash [Magic Mouthwash*] 15 ml PO QID PRN #1 btl PRN Reason: Sore Throat Nystatin 5 ml PO QID #1 bottle Pantoprazole [Protonix Tab] 40 mg PO DAILY #30 tab Patient Discharge Instructions: 1. Follow up with PCP in the next week to follow up this hospitalization. 2. Patient presented with toxic encephalopathy secondary to extensive alveolar right lung pneumonia likely aspiration. Patient with history of polysubstance abuse. Patient positive for opiates, methadone, benzodiazepine and THC. Patient not suicidal. Patient apparently had a difficult weak. Patient with history of posttraumatic to order. Patient initially seen at the [facility] and sent to the hospital for evaluation. Patient was treated during his stay. Patient received IV antibiotic therapy with improvement. Repeat chest x-ray shows improvement. Patient without any significant shortness of breath. At discharge he will continue with Levaquin 500 mg daily for 7 days. Patient will continue with Tessalon Perles 100 mg 3 times a day as needed for cough and Mucinex 600 mg twice daily as needed for congestion. Recommendation to recheck chest x-ray in 2 -4 weeks to monitor resolution. Patient will follow up with his PCP within 1 week to follow up this hospitalization. 3. Patient with sore throat. Likely thrush. Patient will be given nystatin swish and swallow 4 times a day and Magic mouthwash to be use as needed. 4. Patient with polysubstance abuse. Patient positive for opiates, methadone, benzodiazepine and THC. Patient not suicidal at this time. Patient admits taking multiple medication due to a difficult time. Patient with history of posttraumatic stress disorder. Patient is seen at the [facility]. Recommendation is for the patient follow up at the [facility] this week to further address. Patient should see psychiatry. Patient should receive counseling and possibly medication to further address. This can be done with the help of his PCP. 5. Patient with alcohol abuse. Alcohol cessation addressed in detail. This will need to be enforced. Patient may benefit with alcoholics anonymous counseling. 6. Patient with insomnia. Patient may continue with his medication Lunesta. 7. Patient may have underlying GERD. Patient will continue with Protonix 40 mg daily. This can be further addressed as an outpatient by GI. 8. Patient may return to work in 1 week or be seen by his PCP within the next 2 days to get cleared to go back to work. Diet: Soft GI Activity: Ad addi Time spent managing pt's care (in minutes): 55
[2018-09-29] MEDS ORDERED: PIPER/TAZO/NS 3.375gm 3.375 GM/100 ML BAG IVPB SCH (17:00)
== END 2018-09-29 14:46 | disposition home or self-care (01) | DRG 917 ==
LOC: ER 16:50 → ERHOLD 20:19 → 2ND 21:16
PROVIDERS: ADMIT Hospitalist; ATTEND Family Medicine
DX: T40.7X1A Poisoning by cannabis (derivatives), accidental (unintentional), initial encounter (principal); J18.1 Lobar pneumonia, unspecified organism; G92 Toxic encephalopathy; J69.0 Pneumonitis due to inhalation of food and vomit; J02.0 Streptococcal pharyngitis; F43.10 Post-traumatic stress disorder, unspecified; G47.00 Insomnia, unspecified; K21.9 Gastro-esophageal reflux disease without esophagitis; F10.10 Alcohol abuse, uncomplicated; Y92.009 Unspecified place in unspecified non-institutional (private) residence as the place of occurrence of the external cause; T42.4X1A Poisoning by benzodiazepines, accidental (unintentional), initial encounter; T40.601A Poisoning by unspecified narcotics, accidental (unintentional), initial encounter
CPT/HCPCS: 36415; 71046; 71260; 80048; 80053; 80061; 80076; 80307; 80320; 80329; 81003; 83605; 83735; 84100; 84145; 85025; 85610; 85730; 87040; 87070; 87081; 87205; 93005; 94760; 96365; 96366; 96375; 99285; J1650; J2543; J3370; J3475; J7030; Q9967

== ENCOUNTER 2018-12-13 12:32 | Emergency (ER) | payer OTHER, SELFPAY ==
[2018-12-13] MEDS ORDERED: LIDOCAINE 1% MPF 5 ML VIAL ONE (13:45)
[2018-12-13] MEDS ORDERED: BUPIVACAINE 0.5% PF 10 ML VIAL ONE (13:46)
--- NOTE | 2018-12-13 14:28 | EDPHYS ---
Physician Documentation [facility] Name: Roberto Caal Age: 28 yrs Sex: Male : 1990 Arrival Date: 12/13/2018 Time: 12:36 Bed 26 Private MD: ED Physician Jona Mejia HPI: 12/13 13:20 This 28 yrs old Male presents to ER via Ambulatory with complaints of Rectal cp Bleeding. 13:20 The patient presents to the emergency department with bleeding from the rectum/anus, cp that is mild. 13:20 Onset: The symptoms/episode began/occurred yesterday. cp 13:20 Context: the patient has a known history of hemorrhoids. Associate signs and symptoms: cp Pertinent negatives: abdominal pain, constipation, diarrhea, fever. Historical: - Allergies: 12:53 No Known Allergies; sv - PMHx: 12:53 PTSD; sv - PSHx: 12:53 None; sv - Immunization history:: Flu vaccine is up to date. - Social history:: Smoking status: Patient uses tobacco products, smokes one-half pack cigarettes per day. - Ebola Screening: : No symptoms or risks identified at this time. ROS: 13:25 Constitutional: Negative for body aches, chills, fever, poor PO intake. cp 13:25 Eyes: Negative for injury, pain, redness, and discharge. cp 13:25 ENT: Negative for drainage from ear(s), ear pain, sore throat, difficulty swallowing, difficulty handling secretions. 13:25 Cardiovascular: Negative for chest pain. 13:25 Respiratory: Negative for cough, wheezing. 13:25 Abdomen/GI: Positive for rectal bleeding, Negative for abdominal pain, nausea, vomiting, and diarrhea. 13:25 All other systems are negative. Exam: 13:33 Constitutional: The patient appears in no acute distress, alert, awake, non-toxic, well cp developed, well nourished. 13:33 Head/Face: Normocephalic, atraumatic. cp 13:33 Eyes: Periorbital structures: appear normal, Conjunctiva: normal, no exudate, no injection, Lids and lashes: appear normal, bilaterally. 13:33 ENT: External ear(s): are unremarkable, Nose: is normal, Mouth: is normal, Posterior pharynx: Airway: no evidence of obstruction, patent. 13:33 Chest/axilla: Inspection: normal, Palpation: is normal, no crepitus, no tenderness. 13:33 Cardiovascular: Rate: normal, Rhythm: regular. 13:33 Respiratory: the patient does not display signs of respiratory distress, Respirations: normal, no use of accessory muscles, no retractions, no splinting, no tachypnea, Breath sounds: are clear throughout, no decreased breath sounds. 13:33 Abdomen/GI: Inspection: abdomen appears normal, Palpation: abdomen is soft and non-tender, in all quadrants. 13:33 : Rectal exam: hemorrhoid(s), external, bleeding, thrombosed, noted at 3 o'clock position of rectum. Vital Signs: 12:53 BP 124 / 73; Pulse 50; Resp 18; Temp 97.8; Pulse Ox 98% ; Weight 81.65 kg; Height 5 ft. sv 9 in. (175.26 cm); Pain 5/10; 14:47 BP 121 / 69; Pulse 84; Resp 18; Pulse Ox 99% on R/A; tm3 12:53 Body Mass Index 26.58 (81.65 kg, 175.26 cm) sv MDM: 13:07 Patient medically screened. cp 14:25 Data reviewed: vital signs, nurses notes, and as a result, I will discharge patient. cp 14:25 Counseling: I had a detailed discussion with the patient and/or guardian regarding: the cp historical points, exam findings, and any diagnostic results supporting the discharge/admit diagnosis, to return to the emergency department if symptoms worsen or persist or if there are any questions or concerns that arise at home. Response to treatment: the patient's symptoms have markedly improved after treatment, and as a result, I will discharge patient. ED course: VSS. Area anesthesized with 3ccs of 50/50 mixture 1% lidocaine w/o epi and 0.5% marcaine. Using hemostats, small clots were evacuated. Patient tolerated well. Area dressed with 4 by 4s and patient instructed to perform sitz baths. 12/13 13:26 Order name: Dressing - Wound; Complete Time: 14:48 cp 12/13 13:26 Order name: Gloves, Sterile; Complete Time: 14:48 cp 12/13 13:26 Order name: Setup Suture Tray; Complete Time: 14:48 cp Administered Medications: 14:00 Drug: Marcaine (0.5 %) 5 ml {Note: Administered by PA. Andria} Volume: 10 ml; ca1 Route: Infiltration; 14:01 Drug: Lidocaine (1 %) 5 mg {Note: Administered by PA. Andria} Route: Infiltration; ca1 Disposition: 12/13/18 14:27 Discharged to Home. Impression: Hemorrhoids and perianal venous thrombosis. - Condition is Stable. - Discharge Instructions: Hemorrhoids, How to Take a Sitz Bath. - Prescriptions for Colace 100 mg Oral Tablet - take 1 tablet by ORAL route every 12 hours; 14 tablet. Tramadol 50 mg Oral Tablet - take 1 tablet by ORAL route every 8 hours as needed; 15 tablet. - Medication Reconciliation Form, Thank You Letter, Antibiotic Education, Prescription Opioid Use form. - Follow up: Alejandro Galvez MD; When: 2 - 3 days; Reason: Worsening of condition. - Problem is new. - Symptoms have improved. Addendum: 12/16/2018 05:27 Co-signature as Attending Physician, Jona Mejia MD I agree with the assessment and c jernigan plan of care. Signatures: Era Jha, RN RN Jona Kaplan MD MD cha Page, Corey, PA PA cp Acob, Cheryl RN RN ca1 Corrections: (The following items were deleted from the chart) 12/13 14:59 14:27 12/13/2018 14:27 Discharged to Home. Impression: Hemorrhoids and perianal venous ca1 thrombosis. Condition is Stable. Forms are Medication Reconciliation Form, Thank You Letter, Antibiotic Education, Prescription Opioid Use. Follow up: Alejandro Galvez; When: 2 - 3 days; Reason: Worsening of condition. Problem is new. Symptoms have improved. cp
--- NOTE | 2018-12-13 14:28 | ER ---
Nurse's Notes [facility] Name: Roberto Caal Age: 28 yrs Sex: Male : 1990 Arrival Date: 12/13/2018 Time: 12:36 Bed 26 Private MD: Diagnosis: Hemorrhoids and perianal venous thrombosis Presentation: 12/13 12:52 Presenting complaint: Patient states: rectal bleeding, has hemorrhoids x 1 day. sv Transition of care: patient was not received from another setting of care. Onset of symptoms was December 12, 2018. Care prior to arrival: None. 12:52 Method Of Arrival: Ambulatory sv 12:52 Acuity: RYAN 3 sv 13:02 Risk Assessment: Do you want to hurt yourself or someone else? Patient reports no ca1 desire to harm self or others. 13:02 Initial Sepsis Screen: Does the patient have a suspected source of infection? Yes: Skin ca1 breakdown/wound. 14:55 Initial Sepsis Screen: Does the patient meet any 2 criteria?. ca1 Triage Assessment: 12:54 General: Appears in no apparent distress. uncomfortable, Behavior is calm, cooperative, sv appropriate for age. Pain: Complains of pain in anus Pain currently is 5 out of 10 on a pain scale. Neuro: Level of Consciousness is awake, alert, obeys commands, Oriented to person, place, time, situation, Gait is steady. Respiratory: Respiratory effort is even, unlabored, Respiratory pattern is regular, symmetrical. GI: Reports rectal bleeding. Historical: - Allergies: 12:53 No Known Allergies; sv - PMHx: 12:53 PTSD; sv - PSHx: 12:53 None; sv - Immunization history:: Flu vaccine is up to date. - Social history:: Smoking status: Patient uses tobacco products, smokes one-half pack cigarettes per day. - Ebola Screening: : No symptoms or risks identified at this time. Screenin:02 Abuse screen: Denies threats or abuse. Denies injuries from another. Nutritional ca1 screening: No deficits noted. Tuberculosis screening: No symptoms or risk factors identified. Fall Risk None identified. Assessment: 13:02 General: Appears in no apparent distress. uncomfortable, Behavior is calm, cooperative, ca1 appropriate for age. Pain: Complains of pain in pelvis and anus and groin Pain currently is 4 out of 10 on a pain scale. Pain began 4 hours ago. Neuro: Level of Consciousness is awake, alert, obeys commands, Oriented to person, place, time, situation. Cardiovascular: Heart tones S1 S2 present Capillary refill < 3 seconds Patient's skin is warm and dry. Respiratory: Airway is patent Respiratory effort is even, unlabored, Respiratory pattern is regular, symmetrical, Breath sounds are clear bilaterally. GI: Abdomen is flat, non-distended, Bowel sounds present X 4 quads. Reports rectal bleeding. : No signs and/or symptoms were reported regarding the genitourinary system. EENT: No signs and/or symptoms were reported regarding the EENT system. Derm: Skin is intact, is healthy with good turgor, Skin is pink, warm \T\ dry. Musculoskeletal: Circulation, motion, and sensation intact. 14:00 Reassessment: Patient appears in no apparent distress at this time. Patient and/or ca1 family updated on plan of care and expected duration. Pain level reassessed. Patient is alert, oriented x 3, equal unlabored respirations, skin warm/dry/pink. YANNICK Ayers at bedside to evacuate blood and assess hemorrhoids. 14:40 Reassessment: Patient appears in no apparent distress at this time. Patient and/or ca1 family updated on plan of care and expected duration. Pain level reassessed. Patient is alert, oriented x 3, equal unlabored respirations, skin warm/dry/pink. Vital Signs: 12:53 BP 124 / 73; Pulse 50; Resp 18; Temp 97.8; Pulse Ox 98% ; Weight 81.65 kg; Height 5 ft. sv 9 in. (175.26 cm); Pain 5/10; 14:47 BP 121 / 69; Pulse 84; Resp 18; Pulse Ox 99% on R/A; tm3 12:53 Body Mass Index 26.58 (81.65 kg, 175.26 cm) sv ED Course: 12:36 Patient arrived in ED. mr 12:53 Triage completed. sv 12:54 Arm band placed on. sv 13:02 Patient has correct armband on for positive identification. Placed in gown. Bed in low ca1 position. Call light in reach. Side rails up X 1. Pulse ox on. NIBP on. Warm blanket given. 13:07 Jona Ridley PA is PHCP. cp 13:07 Jona Mejia MD is Attending Physician. cp 13:31 Justa Chen, RN is Primary Nurse. ca1 14:25 Alejandro Galvez MD is Referral Physician. cp 14:58 No provider procedures requiring assistance completed. Patient did not have IV access ca1 during this emergency room visit. Administered Medications: 14:00 Drug: Marcaine (0.5 %) 5 ml {Note: Administered by PA. Andria} Volume: 10 ml; ca1 Route: Infiltration; 14:01 Drug: Lidocaine (1 %) 5 mg {Note: Administered by PA. Andria} Route: Infiltration; ca1 Outcome: 14:27 Discharge ordered by MD. cp 14:59 Discharged to home ambulatory. ca1 14:59 Condition: stable 14:59 Discharge instructions given to patient, Instructed on discharge instructions, follow up and referral plans. medication usage, Demonstrated understanding of instructions, follow-up care, medications, Prescriptions given X 2. 14:59 Patient left the ED. ca1 Signatures: Uriel Bergmani 3 Era Jha RN RN Marisol Ferrell Jona Ridley PA PA cp Justa Chen, JANI RN ca1 Corrections: (The following items were deleted from the chart) 12:55 12:53 Pulse 50bpm; Resp 18bpm; Pulse Ox 98%; Temp 97.8F; 81.65 kg; Height 5 ft. 9 in.; sv BMI: 26.5; Pain 5/10; sv
== END 2018-12-13 14:59 | disposition home or self-care (01) ==
LOC: ER 12:32
DX: K64.9 Unspecified hemorrhoids (principal); K64.5 Perianal venous thrombosis; F43.10 Post-traumatic stress disorder, unspecified; F17.210 Nicotine dependence, cigarettes, uncomplicated
CPT/HCPCS: 99283

== ENCOUNTER 2018-12-18 16:19 | Emergency (ER) | payer OTHER ==
[2018-12-18 17:35] LABS: Absolute Lymphocytes (CBC) 2.7 K/uL (0.7-4.9); Absolute Monocytes 0.6 K/uL (0.1-1.3); Absolute Neutrophil 3.7 K/uL (1.8-8.0); Basophils % 0.7 % (0-1.3); Eosinophils % 6.9 % (0-4.4); Hematocrit 44.1 % (39.6-49.0); Lymphocytes % 35.1 % (15.3-44.8); MPV 9.8 fL (7.6-11.3); Monocytes % 8.1 % (3.3-12.3); RBC Red Blood Cell Count 4.82 M/uL (4.33-5.43)
[2018-12-18] MEDS ORDERED: NA CHLORIDE 0.9% 1,000 ML ONE (17:39)
--- NOTE | 2018-12-18 17:45 | RAD REPORT ---
EXAM DESCRIPTION: CT - Stone Protocol - 12/18/2018 5:33 pm CLINICAL HISTORY: Flank pain. groin pain;Abd pain COMPARISON: No comparisons TECHNIQUE: Axial images were obtained without oral or IV contrast. Lack of contrast limits solid org an and vascular assessment. The [id number] spans the entirety of the system partially obscuring uppermost abdomen and lung bases. Coronal reformatted images were obtained and reviewed. All CT scans are performed using dose optimization technique as appropriate and may include automated exposure control or mA/KV adjustment according to patient size. FINDINGS: The lower lung oconnor are clear. Imaged portions of the liver and spleen show no suspicious findings on non-contrast imaging. The panc reas and adrenal glands are normal. No pathologic lymphadenopathy in the abdomen or pelvis. No urinary tract stones or obstructive uropathy. No bowel obstruction, free air, free fluid or abscess. Normal appendix noted. No significant bony abnormality. Thin metallic structure is seen in the right lower quadrant of the p marcela of unclear etiology. IMPRESSION: No urinary tract stones or obstructive uropathy.
[2018-12-18 17:51] LABS: ALT/SGPT 88 U/L (12-78); AST/SGOT 32 U/L (15-37); Albumin 4.1 g/dL (3.4-5.0); Alkaline Phosphatase 70 U/L (45-117); BUN Blood Urea Nitrogen 18 mg/dL (7-18); Bicarbonate 32 mmol/L (21-32); Bilirubin Direct 0.1 mg/dL (0-0.2); Bilirubin Total 0.3 mg/dL (0.2-1.0); Glucose Level 59 mg/dL (74-106); Lipase 86 U/L (73-393); Potassium 3.9 mmol/L (3.5-5.1); Protein, Total 7.5 g/dL (6.4-8.2); Sodium Level 139 mmol/L (136-145)
--- NOTE | 2018-12-18 18:23 | EDPHYS ---
Physician Documentation [facility] Name: Roberto Caal Age: 28 yrs Sex: Male : 1990 Arrival Date: 12/18/2018 Time: 16:24 Bed 4 Private MD: ED Physician Segundo Conklin HPI: 12/18 17:30 This 28 yrs old Male presents to ER via Ambulatory with complaints of pm1 Abdominal Pain. 17:30 The patient presents with abdominal pain in the periumbilical area. Onset: The pm1 symptoms/episode began/occurred yesterday. Associated signs and symptoms: Pertinent negatives: nausea, vomiting, and diarrhea, chest pain, shortness of breath, testicular pain. The symptoms are described as crampy, comes and goes. Modifying factors: The symptoms are alleviated by nothing, the symptoms are aggravated by nothing. Severity of pain: in the emergency department the pain has improved. The patient has not experienced similar symptoms in the past. The patient has not recently seen a physician. Historical: - Allergies: 16:33 No Known Allergies; tw2 - Home Meds: 16:33 None [Active]; tw2 - PMHx: 16:33 PTSD; tw2 - PSHx: 16:33 None; tw2 - Immunization history:: Adult Immunizations. - Social history:: Smoking status: Patient uses tobacco products, smokes one-half pack cigarettes per day. - Ebola Screening: : Patient denies travel to an Ebola-affected area in the 21 days before illness onset. ROS: 17:30 Constitutional: Negative for fever, chills, and weight loss, Eyes: Negative for injury, pm1 pain, redness, and discharge, ENT: Negative for injury, pain, and discharge, Neck: Negative for injury, pain, and swelling, Cardiovascular: Negative for chest pain, palpitations, and edema, Respiratory: Negative for shortness of breath, cough, wheezing, and pleuritic chest pain. 17:30 Back: Negative for injury and pain, : Negative for injury, bleeding, discharge, and swelling, MS/Extremity: Negative for injury and deformity, Skin: Negative for injury, rash, and discoloration, Neuro: Negative for headache, weakness, numbness, tingling, and seizure. 17:30 Abdomen/GI: Positive for abdominal pain, Negative for nausea, vomiting, and diarrhea. Exam: 17:30 Constitutional: This is a well developed, well nourished patient who is awake, alert, pm1 and in no acute distress. Head/Face: Normocephalic, atraumatic. Eyes: Pupils equal round and reactive to light, extra-ocular motions intact. Lids and lashes normal. Conjunctiva and sclera are non-icteric and not injected. Cornea within normal limits. Periorbital areas with no swelling, redness, or edema. ENT: Nares patent. No nasal discharge, no septal abnormalities noted. Tympanic membranes are normal and external auditory canals are clear. Oropharynx with no redness, swelling, or masses, exudates, or evidence of obstruction, uvula midline. Mucous membranes moist. Neck: Trachea midline, no thyromegaly or masses palpated, and no cervical lymphadenopathy. Supple, full range of motion without nuchal rigidity, or vertebral point tenderness. No Meningismus. Chest/axilla: Normal chest wall appearance and motion. Nontender with no deformity. No lesions are appreciated. Cardiovascular: Regular rate and rhythm with a normal S1 and S2. No gallops, murmurs, or rubs. Normal PMI, no JVD. No pulse deficits. Respiratory: Lungs have equal breath sounds bilaterally, clear to auscultation and percussion. No rales, rhonchi or wheezes noted. No increased work of breathing, no retractions or nasal flaring. Abdomen/GI: Soft, non-tender, with normal bowel sounds. No distension or tympany. No guarding or rebound. No evidence of tenderness throughout. Back: No spinal tenderness. No costovertebral tenderness. Full range of motion. Skin: Warm, dry with normal turgor. Normal color with no rashes, no lesions, and no evidence of cellulitis. MS/ Extremity: Pulses equal, no cyanosis. Neurovascular intact. Full, normal range of motion. 17:30 Neuro: Orientation: is normal, Motor: is normal, moves all fours, Gait: is steady, at a normal pace, without difficulty. Vital Signs: 16:32 BP 128 / 97; Pulse 72; Resp 17; Temp 97.6(TE); Pulse Ox 100% on R/A; Weight 81.65 kg tw2 (R); Height 5 ft. 9 in. (175.26 cm); Pain 3/10; 17:57 BP 123 / 83; Pulse 75; Resp 18; Pulse Ox 99% on R/A; aj1 18:36 BP 126 / 84; Pulse 74; Resp 16; Pulse Ox 100% on R/A; Pain 0/10; iw 16:32 Body Mass Index 26.58 (81.65 kg, 175.26 cm) tw2 16:32 when it hits me it makes me want to fold over tw2 MDM: 16:50 Patient medically screened. pm1 18:22 Data reviewed: vital signs. Data interpreted: Pulse oximetry: on room air is 99 %. pm1 Interpretation: normal. Counseling: I had a detailed discussion with the patient and/or guardian regarding: the historical points, exam findings, and any diagnostic results supporting the discharge/admit diagnosis, lab results, radiology results, the need for outpatient follow up, to return to the emergency department if symptoms worsen or persist or if there are any questions or concerns that arise at home. 12/18 16:54 Order name: Basic Metabolic Panel; Complete Time: 18:21 pm1 12/18 16:54 Order name: CBC with Diff; Complete Time: 17:50 pm1 12/18 16:54 Order name: Creatinine for Radiology; Complete Time: 17:50 pm1 12/18 16:54 Order name: Hepatic Function; Complete Time: 18:21 pm1 12/18 16:54 Order name: Lipase; Complete Time: 18:21 pm1 12/18 16:56 Order name: CT Stone Protocol; Complete Time: 17:50 pm1 12/18 16:54 Order name: IV Saline Lock; Complete Time: 17:36 pm1 12/18 16:54 Order name: Labs collected and sent; Complete Time: 17:36 pm1 Administered Medications: 17:56 Drug: NS 0.9% 1000 ml Route: IV; Rate: 1000 ml; Site: left antecubital; aj1 18:37 Follow up: IV Status: Completed infusion iw Disposition: 18:55 Co-signature as Attending Physician, Segundo Conklin MD Available for consultation at ps1 all times. . Disposition: 12/18/18 18:23 Discharged to Home. Impression: Unspecified abdominal pain. - Condition is Stable. - Discharge Instructions: Abdominal Pain, Adult. - Medication Reconciliation Form, Thank You Letter, Antibiotic Education form. - Follow up: Emergency Department; When: As needed; Reason: Worsening of condition. Follow up: Private Physician; When: 2 - 3 days; Reason: Recheck today's complaints, Continuance of care, Re-evaluation by your physician. - Problem is new. - Symptoms have improved. Signatures: Dispatcher [employer] EDMS Yin Castellanos RN RN aj1 Mariana Agudelo RN RN iw Khoi Sanches, KNOT CUTTER KNOT CUTTER pm1 Emilie Hagen RN RN tw2 Segundo Conklin MD MD ps1 Corrections: (The following items were deleted from the chart) 18:38 18:23 12/18/2018 18:23 Discharged to Home. Impression: Unspecified abdominal pain. iw Condition is Stable. Forms are Medication Reconciliation Form, Thank You Letter, Antibiotic Education, Prescription Opioid Use. Follow up: Emergency Department; When: As needed; Reason: Worsening of condition. Follow up: Private Physician; When: 2 - 3 days; Reason: Recheck today's complaints, Continuance of care, Re-evaluation by your physician. Problem is new. Symptoms have improved. pm1
--- NOTE | 2018-12-18 18:23 | ER ---
Nurse's Notes [facility] Name: Roberto Caal Age: 28 yrs Sex: Male : 1990 Arrival Date: 12/18/2018 Time: 16:24 Bed 4 Private MD: Diagnosis: Unspecified abdominal pain Presentation: 12/18 16:31 Presenting complaint: Patient states: i started getting stabbing pains in my stomach tw2 yesterday, i tried to put it off, but all night it woke me up, now it is spreading down in to my groin area, comes in waves , denies NVD, denies fever. Transition of care: patient was not received from another setting of care. Onset of symptoms was December 18, 2018. Risk Assessment: Do you want to hurt yourself or someone else? Patient reports no desire to harm self or others. Initial Sepsis Screen: Does the patient meet any 2 criteria? No. Patient's initial sepsis screen is negative. Does the patient have a suspected source of infection? No. Patient's initial sepsis screen is negative. Care prior to arrival: None. 16:31 Method Of Arrival: Ambulatory tw2 16:31 Acuity: RYAN 3 tw2 Triage Assessment: 16:33 General: Appears in no apparent distress. Behavior is calm, cooperative, appropriate tw2 for age. Pain: Complains of pain in abdomen. GI: Reports lower abdominal pain, upper abdominal pain, Patient currently denies diarrhea, nausea, vomiting. Historical: - Allergies: 16:33 No Known Allergies; tw2 - Home Meds: 16:33 None [Active]; tw2 - PMHx: 16:33 PTSD; tw2 - PSHx: 16:33 None; tw2 - Immunization history:: Adult Immunizations. - Social history:: Smoking status: Patient uses tobacco products, smokes one-half pack cigarettes per day. - Ebola Screening: : Patient denies travel to an Ebola-affected area in the 21 days before illness onset. Screenin:39 Abuse screen: Denies threats or abuse. Denies injuries from another. Nutritional aj1 screening: No deficits noted. Tuberculosis screening: No symptoms or risk factors identified. 18:36 Fall Risk IV access (20 points). iw Assessment: 16:39 General: Appears in no apparent distress. comfortable, Behavior is calm, cooperative, aj1 appropriate for age. Pain: Complains of pain in right lower quadrant Pain does not radiate. Pain currently is 3 out of 10 on a pain scale. Is intermittent. Neuro: Level of Consciousness is awake, alert, obeys commands, Oriented to person, place, time, situation. Cardiovascular: Patient's skin is warm and dry. Respiratory: Airway is patent Respiratory effort is even, unlabored, Respiratory pattern is regular, symmetrical. GI: Abdomen is flat, non-distended, Bowel sounds present X 4 quads. Abd is soft X 4 quads Abdomen is tender to palpation in right lower quadrant Patient currently denies diarrhea, nausea, vomiting. : No signs and/or symptoms were reported regarding the genitourinary system. EENT: No signs and/or symptoms were reported regarding the EENT system. Derm: No signs and/or symptoms reported regarding the dermatologic system. Skin is pink, warm \T\ dry. normal. Musculoskeletal: No signs and/or symptoms reported regarding the musculoskeletal system. Circulation, motion, and sensation intact. 17:51 Reassessment: Patient appears in no apparent distress at this time. No changes from aj1 previously documented assessment. Patient and/or family updated on plan of care and expected duration. Pain level reassessed. Patient is alert, oriented x 3, equal unlabored respirations, skin warm/dry/pink. 18:36 Reassessment: Patient appears in no apparent distress at this time. Patient and/or iw family updated on plan of care and expected duration. Pain level reassessed. Patient is alert, oriented x 3, equal unlabored respirations, skin warm/dry/pink. Patient states feeling better. Patient states symptoms have improved. Vital Signs: 16:32 BP 128 / 97; Pulse 72; Resp 17; Temp 97.6(TE); Pulse Ox 100% on R/A; Weight 81.65 kg tw2 (R); Height 5 ft. 9 in. (175.26 cm); Pain 3/10; 17:57 BP 123 / 83; Pulse 75; Resp 18; Pulse Ox 99% on R/A; aj1 18:36 BP 126 / 84; Pulse 74; Resp 16; Pulse Ox 100% on R/A; Pain 0/10; iw 16:32 Body Mass Index 26.58 (81.65 kg, 175.26 cm) tw2 16:32 when it hits me it makes me want to fold over tw2 ED Course: 16:24 Patient arrived in ED. mr 16:32 Triage completed. tw2 16:32 Arm band placed on. tw2 16:34 Yin Castellanos, RN is Primary Nurse. aj1 16:39 Patient has correct armband on for positive identification. aj1 16:39 No provider procedures requiring assistance completed. aj1 16:49 Khoi Sanches NP is PHCP. pm1 16:49 Segundo Conklin MD is Attending Physician. pm1 17:32 CT Stone Protocol In Process Unspecified. EDMS 18:36 IV discontinued, intact, bleeding controlled, No redness/swelling at site. Pressure iw dressing applied. Administered Medications: 17:56 Drug: NS 0.9% 1000 ml Route: IV; Rate: 1000 ml; Site: left antecubital; aj1 18:37 Follow up: IV Status: Completed infusion iw Outcome: 18:23 Discharge ordered by MD. pm1 18:37 Discharged to home ambulatory. iw 18:37 Condition: good 18:37 Discharge instructions given to patient, Instructed on discharge instructions, follow up and referral plans. Demonstrated understanding of instructions, follow-up care. 18:38 Patient left the ED. iw Signatures: Dispatcher [employer] EDMS Yin Castellanos, RN RN [facility] Marisol Ferrell mr Mariana Agudelo RN RN Khoi Sanches NP NATIONAL FACILITIES MANAGER pm1 Emilie Hagen RN RN tw2
== END 2018-12-18 18:38 | disposition home or self-care (01) ==
LOC: ER 16:19
DX: R10.9 Unspecified abdominal pain (principal); F43.10 Post-traumatic stress disorder, unspecified; F17.210 Nicotine dependence, cigarettes, uncomplicated
CPT/HCPCS: 36415; 74176; 76377; 80048; 80076; 83690; 85025; 96360; 99283; J7030

== ENCOUNTER 2020-08-26 12:10 | Emergency (ER) | payer OTHER ==
[2020-08-26] MEDS ORDERED: LIDOCAINE 1% MPF 5 ML VIAL ONE (12:33)
[2020-08-26] MEDS ORDERED: BUPIVACAINE 0.5% PF 10 ML VIAL ONE ×2 (12:33→13:43)
[2020-08-26] MEDS ORDERED: CEFAZOLIN/SWI 1gm 1 GM/10 ML SYR ONE (12:55)
[2020-08-26] MEDS ORDERED: FENTANYL CITR 100 MCG/2 ML ONE ×2 (12:55→13:28)
--- NOTE | 2020-08-26 13:12 | RAD REPORT ---
EXAM DESCRIPTION: RAD - Hand Left 3 View - 08/26/2020 12:58 pm CLINICAL HISTORY: crush injury to left middle finger COMPARISON: None. FINDINGS: Comminuted fracture is present involving the third distal phalanx. The numerous small frac ture fragments are present at the DIP joint but none appear to arise from the third middle phalanx he ad. Gross soft tissue wound is seen along the dorsal margin probably an open fracture. The fixed flex ure deformity at the DIP joint would indicate extensor tendon disruption. No foreign body seen in the soft tissues peer IMPRESSION: Comminuted fracture of the third digit distal phalanx. Multiple fracture fragments are present at the DIP joint and base of the distal phalanx no significan t distraction or angulation along the fracture planes. DIP joint is in flexion which would indicate disruption of the third digit extensor tendon.
--- NOTE | 2020-08-26 13:42 | EDPHYS ---
Physician Documentation [facility] Name: Roberto Caal Age: 29 yrs Sex: Male : 1990 Arrival Date: 08/26/2020 Time: 12:11 Bed 15 Private MD: Pedro Guillaume E ED Physician Luis Jenkins HPI: 08/26 13:41 This 29 yrs old Male presents to ER via Ambulatory with complaints of kdr Laceration To Finger. 13:41 The patient or guardian reports decreased range of motion, deformity, injury, pain. The kdr complaints affect the left side which is dominant. Context: The problem was sustained at a sports field or court. Onset: The symptoms/episode began/occurred suddenly, just prior to arrival. Modifying factors: The symptoms are alleviated by nothing, the symptoms are aggravated by nothing. Associated signs and symptoms: The patient has no apparent associated signs or symptoms. Severity of symptoms: At their worst the symptoms were mild, in the emergency department the symptoms are unchanged. The patient has not experienced similar symptoms in the past. The patient has not recently seen a physician. The patient was weight lifting and the weight dropped on his finger. Historical: - Allergies: 12:23 No Known Allergies; hb - Home Meds: 12:23 None [Active]; hb - PMHx: 12:23 PTSD; hb - PSHx: 12:23 None; hb - Immunization history:: Adult Immunizations up to date. - Social history:: Smoking status: Patient denies any tobacco usage or history of. - Immunization history: Last tetanus immunization: unknown. ROS: 13:41 Constitutional: Negative for fever, chills, and weight loss, Eyes: Negative for injury, kdr pain, redness, and discharge, Neck: Negative for injury, pain, and swelling, Cardiovascular: Negative for chest pain, palpitations, and edema, Respiratory: Negative for shortness of breath, cough, wheezing, and pleuritic chest pain, Abdomen/GI: Negative for abdominal pain, nausea, vomiting, diarrhea, and constipation. 13:41 MS/extremity: Positive for injury or acute deformity, decreased range of motion, laceration, pain, swelling, tenderness, of the dorsal aspect of distal phalanx of left middle finger, dorsal aspect of middle phalanx of left middle finger, palmar aspect of distal phalanx of left middle finger and palmar aspect of middle phalanx of left middle finger. Exam: 13:41 Constitutional: This is a well developed, well nourished patient who is awake, alert, kdr and in no acute distress. Head/Face: Normocephalic, atraumatic. Eyes: Pupils equal round and reactive to light, extra-ocular motions intact. Lids and lashes normal. Conjunctiva and sclera are non-icteric and not injected. Cornea within normal limits. Periorbital areas with no swelling, redness, or edema. Neck: Trachea midline, no thyromegaly or masses palpated, and no cervical lymphadenopathy. Supple, full range of motion without nuchal rigidity, or vertebral point tenderness. No Meningismus. Chest/axilla: Normal chest wall appearance and motion. Nontender with no deformity. No lesions are appreciated. Cardiovascular: Regular rate and rhythm with a normal S1 and S2. No gallops, murmurs, or rubs. Normal PMI, no JVD. No pulse deficits. Respiratory: Lungs have equal breath sounds bilaterally, clear to auscultation and percussion. No rales, rhonchi or wheezes noted. No increased work of breathing, no retractions or nasal flaring. Abdomen/GI: Soft, non-tender, with normal bowel sounds. No distension or tympany. No guarding or rebound. No evidence of tenderness throughout. Back: No spinal tenderness. No costovertebral tenderness. Full range of motion. 13:41 Musculoskeletal/extremity: Extremities: grossly normal except: noted in the dorsal aspect of distal phalanx of left middle finger, dorsal aspect of middle phalanx of left middle finger, dorsal aspect of proximal phalanx of left middle finger, palmar aspect of distal phalanx of left middle finger and palmar aspect of middle phalanx of left middle finger: decreased ROM, deformity, laceration, pain, swelling, tenderness. Vital Signs: 12:15 BP 140 / 101; Pulse 104; Resp 16; Temp 98.4; Pulse Ox 100% ; Weight 86.18 kg; Height 5 hb ft. 9 in. (175.26 cm); Pain 8/10; 14:00 BP 152 / 113; Pulse 92; ss 15:00 BP 142 / 98; Pulse 86; ss 12:15 Body Mass Index 28.06 (86.18 kg, 175.26 cm) hb [place] Coma Score: 12:15 Eye Response: spontaneous(4). Verbal Response: oriented(5). Motor Response: obeys sv commands(6). Total: 15. 13:15 Eye Response: spontaneous(4). Verbal Response: oriented(5). Motor Response: obeys ss commands(6). Total: 15. 14:15 Eye Response: spontaneous(4). Verbal Response: oriented(5). Motor Response: obeys ss commands(6). Total: 15. 15:15 Eye Response: spontaneous(4). Verbal Response: oriented(5). Motor Response: obeys ss commands(6). Total: 15. Trauma Score (Adult): 12:15 Eye Response: spontaneous(1); Verbal Response: oriented(1); Motor Response: obeys sv commands(2); Systolic BP: > 89 mm Hg(4); Respiratory Rate: 10 to 29 per min(4); [place] Score: 15; Trauma Score: 12 13:15 Eye Response: spontaneous(1); Verbal Response: oriented(1); Motor Response: obeys ss commands(2); Systolic BP: > 89 mm Hg(4); Respiratory Rate: 10 to 29 per min(4); Maurice Score: 15; Trauma Score: 12 14:15 Eye Response: spontaneous(1); Verbal Response: oriented(1); Motor Response: obeys ss commands(2); Systolic BP: > 89 mm Hg(4); Respiratory Rate: 10 to 29 per min(4); [place] Score: 15; Trauma Score: 12 15:15 Eye Response: spontaneous(1); Verbal Response: oriented(1); Motor Response: obeys ss commands(2); Systolic BP: > 89 mm Hg(4); Respiratory Rate: 10 to 29 per min(4); Maurice Score: 15; Trauma Score: 12 Laceration: 15:07 Wound Repair of 5cm ( 2.0in ) subcutaneous laceration to dorsal aspect of middle jmm phalanx of right middle finger. Distal neuro/vascular/tendon intact. Anesthesia: Local anesthetic administered with 3 mls of 0.5% marcaine. Wound prep: Extensive cleansing with betadine by co, Copious irrigation. Skin closed with 8 5-0 Prolene using loosely approximated. Patient tolerated well. MDM: 13:21 ED course: D/w Dr. Noguera - not able to do until tomorrow, Jose Carlos - not marine transport professionals kdr and does not do emergent hands, Hanh - does not do open fracture of the fingers - will attempt [facility]. 13:41 Patient medically screened. kdr 13:58 Data reviewed: vital signs, lab test result(s), radiologic studies. Counseling: I had a kdr detailed discussion with the patient and/or guardian regarding: the historical points, exam findings, and any diagnostic results supporting the discharge/admit diagnosis, lab results, radiology results. 16:02 ED course: [facility] would not take patient on an emergent basis. [facility] patient kdr without conference. 08/26 12:31 Order name: Hand Left 3 View XRAY kdr Administered Medications: 12:42 Drug: Ancef 1 grams {Note: given slow IVP as per pharmacy protocol.} Route: IVPB; Site: ss right antecubital; 12:45 Follow up: IV Status: Completed infusion; IV Intake: 10ml ss 12:50 Not Given (Other Intervention Used): Ancef 1 grams IM once ss 12:52 Drug: fentaNYL (PF) 50 mcg Route: IVP; Site: right antecubital; ss 13:19 Follow up: pain decreased initially ss 13:21 Drug: fentaNYL (PF) 50 mcg Route: IVP; Site: right antecubital; ss 16:12 Follow up: Response: No adverse reaction ss Disposition: 17:13 Co-signature as Attending Physician, Luis Jenkins MD I agree with the assessment and kdr plan of care. Disposition: 08/26/20 13:41 Transfer ordered to s Administration System. Diagnosis is Comminuted open fracture of left middle finger distal phalanx. - Reason for transfer: Higher level of care. - Accepting physician is DC Hand:. - Condition is Fair. - Problem is new. - Symptoms have improved. Signatures: Dispatcher [employer] EDMS Luis Jenkins MD MD [facility] Martell Calero PA PA jmm Smirch, Shelby, RN RN ss Annemarie Moreno RN RN Corrections: (The following items were deleted from the chart) 16:02 13:41 08/26/2020 13:41 Transfer ordered to [facility]. kdr Diagnosis is Comminuted open fracture of left middle finger distal phalanx. Reason for transfer: Higher level of care. Accepting physician is MOUSTAPHA. Condition is Fair. Problem is new. Symptoms have improved. kdr 16:10 16:02 08/26/2020 13:41 Transfer ordered to 's [facility] System. Diagnosis ss is Comminuted open fracture of left middle finger distal phalanx. Reason for transfer: Higher level of care. Accepting physician is CELIA Hand:. Condition is Fair. Problem is new. Symptoms have improved. kdr
--- NOTE | 2020-08-26 13:42 | ER ---
Nurse's Notes [facility] Name: Roberto Caal Age: 29 yrs Sex: Male : 1990 Arrival Date: 08/26/2020 Time: 12:11 Bed 15 Private MD: Pedro Guillaume E Diagnosis: Comminuted open fracture of left middle finger distal phalanx Presentation: 08/26 12:15 Chief complaint: Crush injury to left middle finger after hand got caught between hb weight and rack while lifting weights. 12:15 Coronavirus screen: At this time, the client does not indicate any symptoms associated hb with coronavirus-19. Ebola Screen: No symptoms or risks identified at this time. Initial Sepsis Screen: Does the patient meet any 2 criteria? HR > 90 bpm. No. Patient's initial sepsis screen is negative. Does the patient have a suspected source of infection? No. Patient's initial sepsis screen is negative. Risk Assessment: Do you want to hurt yourself or someone else? Patient reports no desire to harm self or others. Onset of symptoms was August 26, 2020. 12:15 Method Of Arrival: Ambulatory 12:15 Acuity: RYAN 2 hb 12:17 Care prior to arrival: None. Mechanism of Injury: crush injury. Trauma event details: hb Injury occurred in the [facility]. Trauma Activation: Alert Physician: ED Physician; Name: ; Notified At: ; Arrived At: Physician: General Surgeon; Name: ; Notified At: ; Arrived At: Physician: Radiology; Name: ; Notified At: ; Arrived At: Physician: Respiratory; Name: ; Notified At: ; Arrived At: Physician: Lab; Name: ; Notified At: ; Arrived At: Historical: - Allergies: 12:23 No Known Allergies; hb - Home Meds: 12:23 None [Active]; hb - PMHx: 12:23 PTSD; hb - PSHx: 12:23 None; hb - Immunization history:: Adult Immunizations up to date. - Social history:: Smoking status: Patient denies any tobacco usage or history of. - Immunization history: Last tetanus immunization: unknown. Screenin:27 Abuse screen: Denies threats or abuse. Denies injuries from another. Tuberculosis hb screening: No symptoms or risk factors identified. 12:27 Nutritional screening: No deficits noted. Fall Risk None identified. hb Primary Survey: 12:15 NO uncontrolled hemorrhage observed. A: The patient is alert. Airway: patent. hb Breathing/Chest: Respiratory pattern: regular, Respiratory effort: spontaneous, unlabored, Chest inspection: symmetrical rise and fall of the chest. Circulation: Skin color: pink, Skin temperature: warm, dry. Disability Alert. Exposure/Environment: Obvious injury(ies) are noted at this time: Crush injury to left middle finger noted, bleeding controlled by pressure. 13:30 Reassessment Airway Airway Patent Oxygen No O2 Oral cavity Clear Breathing/Chest ss Circulation Pulses Palpable Color [place] Temperature Warm Disability Alert. Secondary Survey: 12:15 HEENT: No deficits noted. Gastrointestinal: No deficits noted. : No deficits noted. sv No signs and/or symptoms were reported regarding the genitourinary system. Musculoskeletal: Range of motion: limited in DIP of left middle finger left middle finger. Injury Description: Crush injury sustained to left middle finger is macerated was sustained less than 30 minutes ago. Assessment: 12:29 Reassessment: Pt's left 3rd digit placed on NS and iodine solution per Dr Jenkins. sv 12:30 General: Appears in no apparent distress. Behavior is calm, cooperative. Pain: ss Complains of pain in dorsal aspect of distal phalanx of left middle finger, dorsal aspect of middle phalanx of left middle finger, palmar aspect of distal phalanx of left middle finger, palmar aspect of middle phalanx of left middle finger and left middle fingernail Pain currently is 2 out of 10 on a pain scale. Quality of pain is described as aching, tender, Pain began suddenly, Is continuous. Neuro: Level of Consciousness is awake, alert, obeys commands, Oriented to person, place, time, situation. EENT: Oral mucosa is moist. Throat is clear. Cardiovascular: Patient's skin is warm and dry. Pulses are palpable in right radial artery and left radial artery. Respiratory: Respiratory effort is even, unlabored, Respiratory pattern is regular, symmetrical. GI: No signs and/or symptoms were reported involving the gastrointestinal system. Derm: Skin is normal. Musculoskeletal: Swelling present in palmar aspect of middle phalanx of left middle finger and palmar aspect of distal phalanx of left middle finger and dorsal aspect of middle phalanx of left middle finger and dorsal aspect of distal phalanx of left middle finger. Injury Description: Crush injury sustained to dorsal aspect of proximal phalanx of left middle finger and palmar aspect of distal phalanx of left middle finger and dorsal aspect of middle phalanx of left middle finger and dorsal aspect of distal phalanx of left middle finger is open fracture, laceration is irregular, approximately 1-2 inches in size. 13:30 Reassessment: Pt is tearful. States it is not the pain, but because he is recently ss and wishes his could be with him now. 14:10 Reassessment: Patient appears in no apparent distress at this time. Patient is alert, ss oriented x 3, equal unlabored respirations, skin warm/dry/pink. awaiting disposition. 15:23 Reassessment: report given to JANI Mckeon at [place] emergency department. Vital Signs: 12:15 BP 140 / 101; Pulse 104; Resp 16; Temp 98.4; Pulse Ox 100% ; Weight 86.18 kg; Height 5 hb ft. 9 in. (175.26 cm); Pain 8/10; 14:00 BP 152 / 113; Pulse 92; ss 15:00 BP 142 / 98; Pulse 86; ss 12:15 Body Mass Index 28.06 (86.18 kg, 175.26 cm) hb Maurice Coma Score: 12:15 Eye Response: spontaneous(4). Verbal Response: oriented(5). Motor Response: obeys sv commands(6). Total: 15. 13:15 Eye Response: spontaneous(4). Verbal Response: oriented(5). Motor Response: obeys ss commands(6). Total: 15. 14:15 Eye Response: spontaneous(4). Verbal Response: oriented(5). Motor Response: obeys ss commands(6). Total: 15. 15:15 Eye Response: spontaneous(4). Verbal Response: oriented(5). Motor Response: obeys ss commands(6). Total: 15. Trauma Score (Adult): 12:15 Eye Response: spontaneous(1); Verbal Response: oriented(1); Motor Response: obeys sv commands(2); Systolic BP: > 89 mm Hg(4); Respiratory Rate: 10 to 29 per min(4); [place] Score: 15; Trauma Score: 12 13:15 Eye Response: spontaneous(1); Verbal Response: oriented(1); Motor Response: obeys ss commands(2); Systolic BP: > 89 mm Hg(4); Respiratory Rate: 10 to 29 per min(4); [place] Score: 15; Trauma Score: 12 14:15 Eye Response: spontaneous(1); Verbal Response: oriented(1); Motor Response: obeys ss commands(2); Systolic BP: > 89 mm Hg(4); Respiratory Rate: 10 to 29 per min(4); [place] Score: 15; Trauma Score: 12 15:15 Eye Response: spontaneous(1); Verbal Response: oriented(1); Motor Response: obeys ss commands(2); Systolic BP: > 89 mm Hg(4); Respiratory Rate: 10 to 29 per min(4); [place] Score: 15; Trauma Score: 12 ED Course: 12:11 Patient arrived in ED. rg4 12:11 Pedro Guillaume MD is Private Physician. rg4 12:15 Patient maintains SpO2 saturation greater than 95% on room air. sv 12:22 Triage completed. hb 12:23 Arm band placed on. hb 12:23 Assist provider with nerve block (digital) of left middle finger Set up for procedure. sv Performed by Luis Jenkins MD Patient tolerated poorly. 12:27 Patient has correct armband on for positive identification. Bed in low position. Call hb light in reach. 12:30 Luis Jenkins MD is Attending Physician. kdr 12:35 Gabbi Nicholas RN is Primary Nurse. ss 12:44 Inserted saline lock: 20 gauge in right antecubital area, using aseptic technique. jp3 12:59 Hand Left 3 View XRAY In Process Unspecified. EDMS 13:22 initiated a transfer with Maggie from the [facility] [place]. eb 13:30 Thermoregulation: warm blanket given to patient. ss 13:45 connected the hand surgeon advertising consultant for [facility] with Dr. Jenkins for patient eb transfer consultation. 13:59 cancelled transfer with [facility]. eb 14:07 initiated transfer with Jeri from the [facility] transfer center. eb 15:12 administrative approval given by Jeri Osborn/ patient has been accepted to eb the [facility] ER/ Dr. Mclean has accepted the patient in transfer without conference with Dr. Jenkins/ report to be called to [phone] ext [phone]. 16:07 Patient transferred, IV remains in place. ss Administered Medications: 12:42 Drug: Ancef 1 grams {Note: given slow IVP as per pharmacy protocol.} Route: IVPB; Site: ss right antecubital; 12:45 Follow up: IV Status: Completed infusion; IV Intake: 10ml ss 12:50 Not Given (Other Intervention Used): Ancef 1 grams IM once ss 12:52 Drug: fentaNYL (PF) 50 mcg Route: IVP; Site: right antecubital; ss 13:19 Follow up: pain decreased initially ss 13:21 Drug: fentaNYL (PF) 50 mcg Route: IVP; Site: right antecubital; ss 16:12 Follow up: Response: No adverse reaction ss Intake: 12:15 PO: 0ml; Total: 0ml. sv 12:45 IV: 10ml; Total: 10ml. ss Output: 12:15 Urine: 0ml; Total: 0ml. sv Outcome: 13:41 ER care complete, transfer ordered by . kdr 16:07 Transferred by ground EMS to [facility] Transfer form completed. ss X-rays sent w/ patient. 16:07 Condition: good 16:07 Instructed on the need for transfer, Demonstrated understanding of instructions. 16:08 Patient's length of stay in the Emergency Department was greater than 2 hours. delay in ss transfer while awaiting on administrative approval from [facility]'s length of stay extended due to 16:10 Patient left the ED. ss Signatures: [facility] Era Adonro RN RN Luis Jenkins MD MD kdr Smirch, Shelby, RN RN Annemarie Moreno RN RN hb Garcia, Rubi rg4 Botello, Elizabeth eb Pisarski, Jacob jp3 Corrections: (The following items were deleted from the chart) 12:27 12:15 Chief complaint: Crush injury to right ring finger after hand got caught between hb weight and rack while lifting weights. hb 12:28 12:23 Reassessment: hb hb 15:26 15:12 administrative approval given by Jeri Osborn/ patient has been eb accepted to the . A ER/ Dr. Mclean has accepted the patient in transfer/ report to be called to [phone] [facility] [id number]
[2020-08-26 16:19] VITALS: TEMP 98.4; O2SAT 100
[2020-08-26 16:22] VITALS: BP 142/98
== END 2020-08-26 16:10 ==
LOC: ER 12:10
PROC: 0JQK0ZZ Repair Left Hand Subcutaneous Tissue and Fascia, Open Approach (ICD-10-PCS; principal; 2020-08-26)
DX: S62.633B Displaced fracture of distal phalanx of left middle finger, initial encounter for open fracture (principal); W20.8XXA Other cause of strike by thrown, projected or falling object, initial encounter; Y93.B3 Activity, free weights; Y92.9 Unspecified place or not applicable
CPT/HCPCS: 73130; 64450; 96375; 96374; 99285; 12002; J3010 ×2; J0690; G0390

== ENCOUNTER 2020-08-30 09:54 | Emergency (ER) | payer OTHER, SELFPAY ==
--- NOTE | 2020-08-30 11:00 | ER ---
Nurse's Notes [facility] Name: Roberto Caal Age: 29 yrs Sex: Male : 1990 Arrival Date: 08/30/2020 Time: 09:59 Bed 13 Private MD: Diagnosis: Pain in left hand Presentation: 08/30 10:06 Chief complaint: Patient states: recently had surgery on his left finger at the [facility] and sv was discharged with Tylenol #3 and the pain has not subsided. Coronavirus screen: Client denies travel out of the [place] in the last 14 days. At this time, the client does not indicate any symptoms associated with coronavirus-19. Ebola Screen: No symptoms or risks identified at this time. Risk Assessment: Do you want to hurt yourself or someone else? Patient reports no desire to harm self or others. Onset of symptoms was August 30, 2020. 10:06 Method Of Arrival: Ambulatory sv 10:06 Acuity: RYAN 4 sv 10:08 Initial Sepsis Screen: Does the patient meet any 2 criteria? No. Patient's initial sv sepsis screen is negative. Does the patient have a suspected source of infection? No. Patient's initial sepsis screen is negative. Triage Assessment: 11:43 Injury Description: Laceration sustained to left hand and dorsal aspect of distal zb phalanx of left middle finger is happen Sunday. at [facility] dressing in place. scheduled to have surgery Sunday. Dressing C/D/I. Historical: - Allergies: 10:08 No Known Allergies; sv - PMHx: 10:08 PTSD; sv - PSHx: 10:08 None; sv - Immunization history:: Adult Immunizations up to date. - Social history:: Smoking status: . Screenin:32 Abuse screen: Denies threats or abuse. Denies injuries from another. Nutritional ph screening: No deficits noted. Tuberculosis screening: No symptoms or risk factors identified. Fall Risk None identified. Assessment: 10:26 General: Appears in no apparent distress. comfortable, well groomed, Behavior is calm, ph cooperative, appropriate for age, Denies fever, feeling ill, fatigue. Neuro: Level of Consciousness is awake, alert, obeys commands, Oriented to person, place, time, situation. Cardiovascular: Denies chest pain, diaphoresis, fatigue, Capillary refill < 3 seconds in right fingers. Respiratory: No deficits noted. Airway is patent Respiratory effort is even, unlabored. GI: No deficits noted. : No deficits noted. EENT: No deficits noted. Derm: Skin is healthy with good turgor. Musculoskeletal: right hand covered with cast. unable to see finger. pt able to move thumb. Reports pain in right hand Denies numbness in, right hand. 10:26 Pain: Complains of pain in dorsal aspect of distal phalanx of left middle finger, zb dorsal aspect of middle phalanx of left middle finger, dorsal aspect of proximal phalanx of left middle finger and left middle fingernail Pain does not radiate. Pain currently is 10 out of 10 on a pain scale. Quality of pain is described as burning, aching, Pain began suddenly, last . 11:30 Reassessment: Patient appears in no apparent distress at this time. Patient and/or zb family updated on plan of care and expected duration. Pain level reassessed. Patient is alert, oriented x 3, equal unlabored respirations, skin warm/dry/pink. pt lying in bed comfortable with friend. Vital Signs: 10:08 BP 152 / 107; Pulse 66; Resp 16; Temp 98.6; Pulse Ox 100% ; sv 11:35 BP 130 / 86; Pulse 64; Resp 18; Pulse Ox 100% on R/A; zb ED Course: 09:59 Patient arrived in ED. mr 10:05 Arm band placed on. sv 10:07 Triage completed. sv 10:10 Roderick Brewer PA is PHCP. jr8 10:10 Jona Mejia MD is Attending Physician. jr8 10:14 Enid Sosa, RN is Primary Nurse. ph 10:14 Mena Hubbard, JANI is Primary Nurse. zb 10:32 No provider procedures requiring assistance completed. ph 10:33 Patient has correct armband on for positive identification. Bed in low position. Call ph light in reach. Side rails up X 1. Door closed. Noise minimized. Head of bed. 11:00 Warm blanket given. zb 11:42 Patient did not have IV access during this emergency room visit. zb Administered Medications: 10:58 Drug: Demerol 50 mg Route: IM; Site: right deltoid; zb 11:30 Follow up: Response: No adverse reaction; Pain is decreased zb 11:48 Follow up: Response: RASS: Alert and Calm (0) zb 10:58 Drug: Zofran (Ondansetron) 4 mg Route: PO; zb 11:30 Follow up: Response: No adverse reaction zb Outcome: 11:00 Discharge ordered by MD. wright 11:42 Discharged to home ambulatory, with friend. zb 11:42 Condition: good 11:42 Discharge instructions given to patient, friend, Instructed on discharge instructions, follow up and referral plans. medication usage, Demonstrated understanding of instructions, follow-up care, medications, Prescriptions given X 1. 11:47 Patient left the ED. zb Signatures: Era Jha RN RN Marisol Gong Josh, PA PA jr8 Hall, Patricia, RN RN [facility], JANI San RN zb Corrections: (The following items were deleted from the chart) 10:10 10:08 Pulse 66bpm; Resp 16bpm; Pulse Ox 100%; Temp 98.6F; sv sv 11:00 10:26 Pain: Complains of pain in palmar aspect of distal phalanx of right ring finger, zb palmar aspect of middle phalanx of right ring finger and palmar aspect of proximal phalanx of right ring finger Pain does not radiate. Pain currently is 10 out of 10 on a pain scale. Quality of pain is described as burning, aching, sharp, Pain began suddenly, last ph 11:04 10:26 Cardiovascular: Denies chest pain, diaphoresis, fatigue, Capillary refill < 3 zb seconds in right fingers ph 11:04 10:26 Pain: Complains of pain in dorsal aspect of distal phalanx of right middle zb finger, dorsal aspect of middle phalanx of right middle finger and dorsal aspect of proximal phalanx of right middle finger Pain does not radiate. Pain currently is 10 out of 10 on a pain scale. Quality of pain is described as burning, aching, sharp, Pain began suddenly, last zb
[2020-08-30] MEDS ORDERED: MEPERIDINE HCL 50 MG/ML ONE (11:01)
--- NOTE | 2020-08-30 11:01 | EDPHYS ---
Physician Documentation [facility] Name: Roberto Caal Age: 29 yrs Sex: Male : 1990 Arrival Date: 08/30/2020 Time: 09:59 Bed 13 Private MD: ALLA Physician Jona Mejia HPI: 08/30 10:49 This 29 yrs old Male presents to ER via Ambulatory with complaints of Hand jr8 Injury, Hand Pain. 10:49 The patient or guardian reports pain. The complaints affect the left hand diffusely. jr8 Onset: The symptoms/episode began/occurred 1 week(s) ago. Modifying factors: The symptoms are alleviated by nothing, the symptoms are aggravated by movement. Associated signs and symptoms: The patient has no apparent associated signs or symptoms. Severity of symptoms: At their worst the symptoms were moderate, in the emergency department the symptoms are unchanged. The patient has not experienced similar symptoms in the past. The patient has been recently seen by a physician:. Patient stated that he was seen in the ED for laceration and fracture of middle finger left hand last week. Was transferred to [place] for surgery and had a pin and plastics completed. Stated that he was sent home on OTC medications for pain and Abx. Stated that the pain is getting intolerable. [facility] but could not tolerate the pain any longer. Historical: - Allergies: 10:08 No Known Allergies; sv - PMHx: 10:08 PTSD; sv - PSHx: 10:08 None; sv - Immunization history:: Adult Immunizations up to date. - Social history:: Smoking status: . ROS: 10:49 Eyes: Negative for injury, pain, redness, and discharge, ENT: Negative for injury, jr8 pain, and discharge, Neck: Negative for injury, pain, and swelling, Cardiovascular: Negative for chest pain, palpitations, and edema, Respiratory: Negative for shortness of breath, cough, wheezing, and pleuritic chest pain, Abdomen/GI: Negative for abdominal pain, nausea, vomiting, diarrhea, and constipation, Back: Negative for injury and pain, Skin: Negative for injury, rash, and discoloration, Neuro: Negative for headache, weakness, numbness, tingling, and seizure. 10:49 MS/extremity: Positive for pain, of the left hand. Exam: 10:49 Constitutional: This is a well developed, well nourished patient who is awake, alert, jr8 and in no acute distress. Cardiovascular: Regular rate and rhythm with a normal S1 and S2. No gallops, murmurs, or rubs. Normal PMI, no JVD. No pulse deficits. Respiratory: Lungs have equal breath sounds bilaterally, clear to auscultation and percussion. No rales, rhonchi or wheezes noted. No increased work of breathing, no retractions or nasal flaring. Skin: Warm, dry with normal turgor. Normal color with no rashes, no lesions, and no evidence of cellulitis. Neuro: Awake and alert, GCS 15, oriented to person, place, time, and situation. Cranial nerves II-XII grossly intact. Motor strength 5/5 in all extremities. Sensory grossly intact. Cerebellar exam normal. Normal gait. 10:49 Musculoskeletal/extremity: Extremities: grossly normal except: noted in the left hand: Hand and wrist on left side casted. Fingertips exposed and with good cap refill and sensation. Able to move all fingers but with moderate pain. Remainder of extremities unremarkable . Vital Signs: 10:08 BP 152 / 107; Pulse 66; Resp 16; Temp 98.6; Pulse Ox 100% ; sv 11:35 BP 130 / 86; Pulse 64; Resp 18; Pulse Ox 100% on R/A; zb MDM: 10:10 Patient medically screened. jr8 10:49 Data reviewed: vital signs, nurses notes, and as a result, I will discharge patient. jr8 Data interpreted: Pulse oximetry: on room air is 100 %. Interpretation: normal. Counseling: I had a detailed discussion with the patient and/or guardian regarding: the historical points, exam findings, and any diagnostic results supporting the discharge/admit diagnosis, the need for outpatient follow up, a hand specialist, to return to the emergency department if symptoms worsen or persist or if there are any questions or concerns that arise at home. Response to treatment: the patient's symptoms have markedly improved after treatment. Administered Medications: 10:58 Drug: Demerol 50 mg Route: IM; Site: right deltoid; zb 11:30 Follow up: Response: No adverse reaction; Pain is decreased zb 11:48 Follow up: Response: RASS: Alert and Calm (0) zb 10:58 Drug: Zofran (Ondansetron) 4 mg Route: PO; zb 11:30 Follow up: Response: No adverse reaction zb Disposition: 14:18 Co-signature as Attending Physician, Jona Mejia MD I agree with the assessment and miya plan of care. Disposition: 08/30/20 11:00 Discharged to Home. Impression: Pain in left hand. - Condition is Stable. - Discharge Instructions: Hand Pain. - Prescriptions for tramadol 200 mg Oral tablet extended release 24 hr - take 1 tablet by ORAL route once daily As needed; 6 tablet. - Medication Reconciliation Form, Thank You Letter, Antibiotic Education, Prescription Opioid Use form. - Follow up: Private Physician; When: 1 - 2 days; Reason: Recheck today's complaints, Continuance of care, Re-evaluation by your physician. - Problem is new. - Symptoms have improved. Signatures: Era Jha, RN Jona Brennan MD MD cha Roszak, Josh, PA PA jrMena Beasley RN RN zb Corrections: (The following items were deleted from the chart) 11:47 11:00 08/30/2020 11:00 Discharged to Home. Impression: Pain in left hand. Condition is zb Stable. Forms are Medication Reconciliation Form, Thank You Letter, Antibiotic Education, Prescription Opioid Use. Follow up: Private Physician; When: 1 - 2 days; Reason: Recheck today's complaints, Continuance of care, Re-evaluation by your physician. Problem is new. Symptoms have improved. jr8
[2020-08-30] MEDS ORDERED: ONDANSETRON 4 MG (ODT) TAB ONE (11:02)
[2020-08-30 12:12] VITALS: TEMP 98.6; O2SAT 100
[2020-08-30 12:13] VITALS: BP 130/86
== END 2020-08-30 11:47 | disposition home or self-care (01) ==
LOC: ER 09:54
DX: M79.642 Pain in left hand (principal)
CPT/HCPCS: 96372; 99283; J2175

== ENCOUNTER 2022-02-21 16:03 | Emergency (ER) | payer OTHER ==
--- NOTE | 2022-02-21 16:46 | EDPHYS ---
Physician Documentation [facility] Name: Roberto Caal Age: 31 yrs Sex: Male : 1990 Arrival Date: 02/21/2022 Time: 16:06 Bed 11 Private MD: ED Physician Alexis Lance HPI: 02/21 16:43 This 31 yrs old Male presents to ER via Ambulatory with complaints of Arm Pain. pm1 16:43 The patient or guardian complains of pain, that is acute. The complaints affect the pm1 left antecubital area. Context: The problem was sustained at home, resulted from Injection of methamphetamines to left antecubital area, reports missing his vein but eventually finding it because he was able to get high. Patient reports not using drugs for the past year and a half. Patient reports moment of weakness dues to his 's 10 year anniversary on the day that he used. Onset: The symptoms/episode began/occurred 3 day(s) ago. Treatment prior to arrival includes: no previous treatment. Modifying factors: The symptoms are alleviated by nothing. the symptoms are aggravated by nothing. Associated signs and symptoms: Pertinent negatives: decreased range of motion, erythema, fever, swelling. Severity of symptoms: in the emergency department the symptoms are unchanged. The patient has not experienced similar symptoms in the past. The patient has not recently seen a physician. Historical: - Allergies: 16:29 No Known Allergies; vg1 - Home Meds: 16:29 clonazepam Oral [Active]; Naloxone [Active]; Lisinopril Oral [Active]; vg1 - PMHx: 16:29 PTSD; Anxiety; Depressive disorder; Hypertensive disorder; vg1 - Immunization history:: Client reports having NOT received the Covid vaccine. - Social history:: Smoking status: Reported history of juuling and/or vaping. Patient uses street drugs, Methamphetamine (Meth). ROS: 16:43 Constitutional: Negative for fever, chills, and weight loss, Cardiovascular: Negative pm1 for chest pain, palpitations, and edema, Respiratory: Negative for shortness of breath, cough, wheezing, and pleuritic chest pain. 16:43 Skin: Negative for injury, rash, and discoloration, Neuro: Negative for headache, weakness, numbness, tingling, and seizure. 16:43 MS/extremity: Positive for pain, tenderness, of the left antecubital area, Negative for decreased range of motion, deformity, ecchymosis, erythema, swelling. 16:43 All other systems are negative. Exam: 16:43 Constitutional: This is a well developed, well nourished patient who is awake, alert, pm1 and in no acute distress. Head/Face: Normocephalic, atraumatic. 16:43 Skin: Warm, dry with normal turgor. Normal color with no rashes, no lesions, and no evidence of cellulitis. MS/ Extremity: Pulses equal, no cyanosis. Neurovascular intact. Full, normal range of motion. Neuro: Awake and alert, GCS 15, oriented to person, place, time, and situation. Cranial nerves II-XII grossly intact. Motor strength 5/5 in all extremities. Sensory grossly intact. Cerebellar exam normal. Normal gait. 16:43 Eyes: Exam is negative for acute changes, Periorbital structures: no acute changes, Pupils: no acute changes, Extraocular movements: no acute changes, Conjunctiva: no acute changes, no injection. 16:43 ENT: Exam is negative for acute changes, Mouth: no acute changes, Lips: normal, moist, Oral mucosa: normal, pink and intact, moist. 16:43 Cardiovascular: Exam negative for acute changes, Rate: normal, Rhythm: regular, Pulses: no pulse deficits are appreciated. 16:43 Respiratory: Exam negative for acute changes, respiratory distress, shortness of breath. Vital Signs: 16:26 BP 127 / 87; Pulse 80; Resp 16; Temp 98.3; Pulse Ox 97% on R/A; Weight 86.18 kg; Height vg1 5 ft. 9 in. (175.26 cm); Pain 5/10; 16:26 Body Mass Index 28.06 (86.18 kg, 175.26 cm) vg1 MDM: 16:30 Patient medically screened. pm1 16:43 Data reviewed: vital signs. Data interpreted: Pulse oximetry: on room air is 97 %. pm1 Interpretation: normal. 16:43 Counseling: I had a detailed discussion with the patient and/or guardian regarding: the pm1 historical points, exam findings, and any diagnostic results supporting the discharge/admit diagnosis, the need for outpatient follow up, a family practitioner, to return to the emergency department if symptoms worsen or persist or if there are any questions or concerns that arise at home. 16:43 Special discussion: I discussed in detail with the patient the higher chance of wound pm1 infection based on his presenting history. Administered Medications: 17:00 Drug: Clindamycin 600 mg Route: IM; Site: left gluteus; ld1 17:27 Follow up: Response: No adverse reaction ld1 17:00 Drug: Ibuprofen 800 mg Route: PO; ld1 17:27 Follow up: Response: No adverse reaction ld1 17:26 Drug: Tetanus-Diphtheria Toxoid Adult 0.5 ml {[employer] Manager: [employer]. Exp: ld1 01/07/2024. Lot #: [id number]. } Route: IM; Site: left deltoid; 17:26 Follow up: Response: No adverse reaction ld1 Disposition: 18:28 Co-signature as Attending Physician, Alexis Lance MD. rn Disposition Summary: 02/21/22 16:46 Discharge Ordered Location: Home pm1 Problem: new pm1 Symptoms: have improved pm1 Condition: Stable pm1 Diagnosis - Puncture wound without foreign body of left forearm, initial encounter pm1 Followup: pm1 - With: Emergency Department - When: As needed - Reason: Worsening of condition Followup: pm1 - With: Private Physician - When: 2 - 3 days - Reason: Recheck today's complaints, Continuance of care, Re-evaluation by your physician Discharge Instructions: - Discharge Summary Sheet pm1 - Puncture Wound pm1 - Illegal Drug Use Information, Adult pm1 Forms: - Medication Reconciliation Form pm1 - Thank You Letter pm1 - Antibiotic Education pm1 - Prescription Opioid Use pm1 Prescriptions: - Clindamycin HCl 300 mg Oral Capsule - take 1 capsule by ORAL route every 6 hours for 10 days; 40 capsule; Refills: 0, pm1 Product Selection Permitted Signatures: Alexis Lance MD MD rn Marinas, Patrick, NP PRORATION CLERK pm1 Yuliya Duenas RN RN 1 Jessi Salazar RN RN ld1
--- NOTE | 2022-02-21 16:46 | ER ---
Nurse's Notes [facility] Name: Roberto Caal Age: 31 yrs Sex: Male : 1990 Arrival Date: 02/21/2022 Time: 16:06 Bed 11 Private MD: Diagnosis: Puncture wound without foreign body of left forearm, initial encounter Presentation: 02/21 16:26 Chief complaint: Patient states: Left arm pain that began on Sunday; "states I'm not vg1 gonna lie, I shot up meth and I missed and its been hurting ever since" Also stated has been sober for a year in a half but relapsed due to 's anniversary. Coronavirus screen: Vaccine status: Patient reports being unvaccinated. Client denies travel out of the [place] in the last 14 days. Ebola Screen: Patient denies exposure to infectious person. Patient denies travel to an Ebola-affected area in the 21 days before illness onset. Initial Sepsis Screen: Does the patient meet any 2 criteria? No. Patient's initial sepsis screen is negative. Does the patient have a suspected source of infection? No. Patient's initial sepsis screen is negative. Risk Assessment: Do you want to hurt yourself or someone else? Patient reports no desire to harm self or others. Onset of symptoms was February 18, 2022. 16:26 Method Of Arrival: Ambulatory vg1 16:26 Acuity: RYAN 4 vg1 Triage Assessment: 16:29 General: Appears in no apparent distress. uncomfortable, Behavior is cooperative, vg1 anxious, crying. Pain: Complains of pain in left arm. Historical: - Allergies: 16:29 No Known Allergies; vg1 - Home Meds: 16:29 clonazepam Oral [Active]; Naloxone [Active]; Lisinopril Oral [Active]; vg1 - PMHx: 16:29 PTSD; Anxiety; Depressive disorder; Hypertensive disorder; vg1 - Immunization history:: Client reports having NOT received the Covid vaccine. - Social history:: Smoking status: Reported history of juuling and/or vaping. Patient uses street drugs, Methamphetamine (Meth). Screenin:41 Abuse screen: Denies threats or abuse. Denies injuries from another. Nutritional ld1 screening: No deficits noted. Tuberculosis screening: No symptoms or risk factors identified. Fall Risk None identified. Assessment: 16:41 General: Appears in no apparent distress. comfortable, Behavior is cooperative, ld1 appropriate for age. Pain: Complains of pain in dorsal aspect of left forearm Pain does not radiate. Pain currently is 5 out of 10 on a pain scale. Neuro: Level of Consciousness is awake, alert, obeys commands, Oriented to person, place, time, situation. Cardiovascular: Capillary refill < 3 seconds Patient's skin is warm and dry. Respiratory: Airway is patent Respiratory effort is even, unlabored. GI: Abdomen is flat, non-distended. : No signs and/or symptoms were reported regarding the genitourinary system. EENT: No signs and/or symptoms were reported regarding the EENT system. Derm: No signs and/or symptoms reported regarding the dermatologic system. Musculoskeletal: No signs and/or symptoms reported regarding the musculoskeletal system. Vital Signs: 16:26 BP 127 / 87; Pulse 80; Resp 16; Temp 98.3; Pulse Ox 97% on R/A; Weight 86.18 kg; Height vg1 5 ft. 9 in. (175.26 cm); Pain 5/10; 16:26 Body Mass Index 28.06 (86.18 kg, 175.26 cm) vg1 ED Course: 16:06 Patient arrived in ED. ds1 16:22 Khoi Sanches NP is PHCP. pm1 16:22 Alexis Lance MD is Attending Physician. pm1 16:29 Triage completed. vg1 16:29 Arm band placed on. vg1 16:33 Jessi Salazar, JANI is Primary Nurse. ld1 16:41 Patient has correct armband on for positive identification. Bed in low position. Call ld1 light in reach. Side rails up X2. bus monitor on. Pulse ox on. NIBP on. Door closed. Noise minimized. Warm blanket given. 16:41 No provider procedures requiring assistance completed. Patient did not have IV access ld1 during this emergency room visit. Administered Medications: 17:00 Drug: Clindamycin 600 mg Route: IM; Site: left gluteus; ld1 17:27 Follow up: Response: No adverse reaction ld1 17:00 Drug: Ibuprofen 800 mg Route: PO; ld1 17:27 Follow up: Response: No adverse reaction ld1 17:26 Drug: Tetanus-Diphtheria Toxoid Adult 0.5 ml {Sanitor: [employer]. Exp: ld1 01/07/2024. Lot #: [id number]. } Route: IM; Site: left deltoid; 17:26 Follow up: Response: No adverse reaction ld1 Outcome: 16:46 Discharge ordered by . pm1 17:27 Patient left the ED. ld1 Signatures: Nery Buckley ds1 Khoi Sanches NP MOBILE DESIGNER pm1 Yuliya Duenas RN RN vg1 Jessi Salazar RN RN ld1 Corrections: (The following items were deleted from the chart) 16:40 16:26 Chief complaint: Patient states: Left arm pain that began on Sunday; "states vg1 I'm not gonna lie and I shot up meth and I missed and its been hurting ever since" vg1
[2022-02-21] MEDS ORDERED: IBUPROFEN 400 MG TAB ONE (16:52)
[2022-02-21] MEDS ORDERED: TETANUS & DIPHTHERIA TOX,ADULT 0.5 ML VIAL ONE (16:52)
[2022-02-21] MEDS ORDERED: CLINDAMYCIN IV 150 MG/ML (6 mL) VIAL ONE (17:14)
[2022-02-21 19:41] VITALS: BP 127/87; TEMP 98.3; O2SAT 97
== END 2022-02-21 17:27 | disposition home or self-care (01) ==
LOC: ER 16:03
DX: S41.132A Puncture wound without foreign body of left upper arm, initial encounter (principal); I10 Essential (primary) hypertension; F32.A Depression, unspecified; F41.9 Anxiety disorder, unspecified; Z23 Encounter for immunization
CPT/HCPCS: 90471; 90714; 96372; 99284